=== PATIENT | female | born 1955 | race Hispanic/Latino ===

== ENCOUNTER 2017-04-28 23:14 | Emergency (ER) | payer OTHER ==
[~2017-04-28 23:14] MED LIST: AEC81 PO; BENZ-51 PO; CALC-1048 PO; GLIP5TAB3 PO; LEVO500T2 PO; LISI-613 PO; METF10004 PO; OSEL75 PO; PRAV20TA4 PO
[2017-04-28] MEDS ORDERED: SODIUM CHLORIDE 0.9% 1000ML 1,000 ML IV ONE (23:49)
[2017-04-28] MEDS ORDERED: IBUPROFEN 400 MG TABLET ONE (23:50)
[2017-04-29] MEDS ORDERED: OSELTAMIVIR PHOSPHATE 75 MG CAP ONE (00:41)
== END 2017-04-29 01:25 | disposition home or self-care (01) ==
LOC: EDH 23:14
DX: J09.X2 Influenza due to identified novel influenza A virus with other respiratory manifestations (principal); J45.909 Unspecified asthma, uncomplicated; E11.9 Type 2 diabetes mellitus without complications; E78.5 Hyperlipidemia, unspecified; Z88.5 Allergy status to narcotic agent; Z90.710 Acquired absence of both cervix and uterus; Z90.49 Acquired absence of other specified parts of digestive tract
CPT/HCPCS: 87804 ×2; 96360; 99284; J7030

== ENCOUNTER 2021-12-12 01:58 | Emergency (ER) | payer OTHER ==
[~2021-12-12] VITALS: Ht 152.4 cm; Wt 75.3 kg
[~2021-12-12 01:58] MED LIST changes: -BENZ-51 PO; +BENZ-70 PO; -LISI-613 PO; +LISI20TA24 PO; +METF-446 PO; -METF10004 PO
[2021-12-12 02:25] LABS: BASOPHILS % (AUTO) 0.5 % (0.0-5.0); EOSINOPHILS % (AUTO) 0.6 % (0.0-8.0); HEMATOCRIT 38.6 % (36-48); LYMPHOCYTES % (AUTO) 22.3 % (21.0-51.0); MEAN CORPUSCULAR HEMOGLOBIN 30.2 pg (27.0-33.0); MEAN CORPUSCULAR HGB CONC 33.7 g/dL (32.0-36.0); MEAN CORPUSCULAR VOLUME 89.6 fL (79-99); NEUTROPHILS % (AUTO) 70.2 % (40.0-77.0); PLATELET COUNT (AUTO) 199 K/uL (130-400); RED BLOOD CELL COUNT(AUTO) 4.31 MIL/uL (4.00-5.50); WHITE BLOOD COUNT (AUTO) 13.3 K/uL (4.8-10.8)
[2021-12-12] MEDS ORDERED: METOCLOPRAMIDE 10 MG/2 ML VIAL IVP ONE (02:30)
[2021-12-12] MEDS ORDERED: 0.9%NACL 1000ML 1,000 ML IV ONE (02:30)
[2021-12-12] MEDS ORDERED: ONDANSETRON 4MG INJ IVP ONE (02:30)
[2021-12-12 02:34] LABS: CREATININE 1.1 mg/dL (0.5-1.5); POTASSIUM 4.2 mmol/L (3.5-5.1)
[2021-12-12 02:44] LABS: TOTAL PROTEIN, SERUM 7.5 g/dL (6.0-8.3)
[2021-12-12] MEDS ORDERED: IOHEXOL 350 MG/ML 100ML INFUS..BTL IV ONE (03:53)
[2021-12-12 04:33] LABS: APPEARANCE,URINE CLEAR (CLEAR); BILIRUBIN,URINE NEGATIVE (NEGATIVE); COLOR,URINE YELLOW (YELLOW); GLUCOSE, URINE (UA) 250 mg/dL (NEGATIVE); KETONES,URINE NEGATIVE (NEGATIVE); LEUKOCYTE ESTERASE ,URINE NEGATIVE (NEGATIVE); NITRATE,URINE NEGATIVE (NEGATIVE); OCCULT BLOOD,URINE NEGATIVE (NEGATIVE); PROTEIN,URINE NEGATIVE (NEGATIVE); UROBILINOGEN,URINE 0.2 mg/dL (0.2-1.0)
[2021-12-12] MEDS ORDERED: ONDA4TAB10 PO (05:18)
[2021-12-12] MEDS ORDERED: AZITHROMYCIN 250 MG TABLET PO ONE (05:30)
[2021-12-12 06:00] VITALS: BP 147/79
== END 2021-12-12 06:25 | disposition home or self-care (01) ==
LOC: EDH 01:58
DX: K52.9 Noninfective gastroenteritis and colitis, unspecified (principal); I10 Essential (primary) hypertension; E11.9 Type 2 diabetes mellitus without complications; E78.00 Pure hypercholesterolemia, unspecified; Z88.6 Allergy status to analgesic agent; Z88.8 Allergy status to other drugs, medicaments and biological substances; Z79.899 Other long term (current) drug therapy; Z79.82 Long term (current) use of aspirin; Z79.84 Long term (current) use of oral hypoglycemic drugs; Z90.89 Acquired absence of other organs; Z90.49 Acquired absence of other specified parts of digestive tract; Z98.890 Other specified postprocedural states
CPT/HCPCS: 99285; 74177; 96374; 96361; 96375; 84484; 80053; 83690; 85025; 81003; 36415; 93005; J7030; J2405; J2765; Q9967

== ENCOUNTER 2022-05-03 06:56 | Emergency (ER) | payer OTHER ==
[~2022-05-03] VITALS: Ht 152.4 cm; Wt 71.2 kg
[~2022-05-03 06:56] MED LIST changes: +ONDA4TAB10 PO
[2022-05-03] MEDS ORDERED: ONDANSETRON 4MG INJ IVP ONE (07:30)
[2022-05-03] MEDS ORDERED: 0.9%NACL 1000ML 1,000 ML IV ONE ×2 (07:30)
[2022-05-03] MEDS ORDERED: PANTOPRAZOLE 40 MG/VIAL IVP STA (07:52)
[2022-05-03 07:57] LABS: HEMATOCRIT 44.6 % (36-48); MEAN CORPUSCULAR HEMOGLOBIN 29.8 pg (27.0-33.0); MEAN CORPUSCULAR HGB CONC 33.2 g/dL (32.0-36.0); MEAN CORPUSCULAR VOLUME 89.9 fL (79-99); RED BLOOD CELL COUNT(AUTO) 4.96 MIL/uL (4.00-5.50); RED CELL DISTRIBUTION WIDTH 13.1 % (11.0-15.5)
[2022-05-03 08:13] LABS: ALBUMIN 4.2 g/dL (3.5-5.0); CREATININE 1.1 mg/dL (0.5-1.5); POTASSIUM 4.8 mmol/L (3.5-5.1); TOTAL PROTEIN, SERUM 8.1 g/dL (6.0-8.3)
[2022-05-03 09:14] LABS: APPEARANCE,URINE CLEAR (CLEAR); BILIRUBIN,URINE NEGATIVE (NEGATIVE); COLOR,URINE COLORLESS (YELLOW); GLUCOSE, URINE (UA) 300 mg/dL (NEGATIVE); KETONES,URINE NEGATIVE (NEGATIVE); LEUKOCYTE ESTERASE ,URINE NEGATIVE Leu/uL (NEGATIVE); NITRATE,URINE NEGATIVE (NEGATIVE); OCCULT BLOOD,URINE NEGATIVE (NEGATIVE); PROTEIN,URINE NEGATIVE (NEGATIVE); UROBILINOGEN,URINE 0.2 mg/dL (0.2-1.0)
[2022-05-03 09:15] LABS: RBC,URINE 0-1 /HPF (0-1); WBC,URINE 0-1 /HPF (0-1)
[2022-05-03] MEDS ORDERED: ONDANSETRON 4MG INJ IVP STA (09:56)
[2022-05-03] MEDS ORDERED: LIDOCAINE HCL 2% VISCOUS 15 ML UDCUP PO ONE (10:00)
[2022-05-03] MEDS ORDERED: MAG/ALUM/SIMETH 30 ML UDCUP PO ONE (10:00)
[2022-05-03 10:18] VITALS: BP 144/69
[2022-05-03] MEDS ORDERED: PANT40TA55 PO (10:29)
[2022-05-03] MEDS ORDERED: ONDA4TAB10 PO (10:29)
== END 2022-05-03 10:35 | disposition home or self-care (01) ==
LOC: EDH 06:56
DX: K52.89 Other specified noninfective gastroenteritis and colitis (principal); R11.2 Nausea with vomiting, unspecified; E11.9 Type 2 diabetes mellitus without complications; E78.00 Pure hypercholesterolemia, unspecified; I10 Essential (primary) hypertension; Z79.82 Long term (current) use of aspirin; Z79.84 Long term (current) use of oral hypoglycemic drugs; Z79.899 Other long term (current) drug therapy; Z88.5 Allergy status to narcotic agent; Z88.8 Allergy status to other drugs, medicaments and biological substances; Z98.890 Other specified postprocedural states; Z90.49 Acquired absence of other specified parts of digestive tract; Z90.710 Acquired absence of both cervix and uterus
CPT/HCPCS: 99284; 96374; 96375; 84484; 80053; 83690; 85027; 87040 ×2; 81001; 36415; 96376; 93005; J7030; J2405 ×2; C9113

== ENCOUNTER 2023-08-24 22:59 | Emergency (ER) | payer OTHER ==
[~2023-08-24] VITALS: Ht 152.4 cm; Wt 70.3 kg
[~2023-08-24 22:59] MED LIST changes: +BENZ-226 PO; -BENZ-70 PO; +PANT40TA55 PO
[2023-08-24 23:25] LABS: BASOPHILS # (AUTO) 0.03 K/uL (0.00-0.20); BASOPHILS % (AUTO) 0.2 % (0.0-5.0); EOSINOPHILS # (AUTO) 0.07 K/uL (0.00-0.70); EOSINOPHILS % (AUTO) 0.5 % (0.0-8.0); HEMATOCRIT 42.1 % (36-48); IMMATURE GRANULOCYTE ABSOLUTE 0.06 K/uL (0-1); LYMPHOCYTES # (AUTO) 1.5 K/uL (1.0-4.8); LYMPHOCYTES % (AUTO) 9.9 % (21.0-51.0); MEAN CORPUSCULAR HEMOGLOBIN 30.8 pg (27.0-33.0); MEAN CORPUSCULAR HGB CONC 34.7 g/dL (32.0-36.0); MEAN CORPUSCULAR VOLUME 88.8 fL (79-99); MONOCYTES % (AUTO) 6.3 % (3.0-13.0); NEUTROPHILS # (AUTO) 12.6 K/uL (1.8-7.7); NEUTROPHILS % (AUTO) 82.7 % (40.0-77.0); PLATELET COUNT (AUTO) 200 K/uL (130-400); RED BLOOD CELL COUNT(AUTO) 4.74 MIL/uL (4.00-5.50); RED CELL DISTRIBUTION WIDTH 13.2 % (11.0-15.5); WHITE BLOOD COUNT (AUTO) 15.2 K/uL (4.8-10.8)
[2023-08-24 23:35] LABS: CREATININE 1.3 mg/dL (0.5-1.0); POTASSIUM 3.9 mmol/L (3.5-5.1)
[2023-08-24 23:39] LABS: ALBUMIN 4.3 g/dL (3.5-5.0); BILIRUBIN,TOTAL 0.3 mg/dL (0.2-1.0); TOTAL PROTEIN, SERUM 8.1 g/dL (6.0-8.3)
[2023-08-25] MEDS: PANTOPRAZOLE 40 MG/VIAL IVP ONE (00:30)
[2023-08-25] MEDS: LACTATED RINGERS 1000ML 1,000 ML IV ONE (00:31)
[2023-08-25 02:26] LABS: APPEARANCE,URINE CLEAR (CLEAR); BILIRUBIN,URINE NEGATIVE (NEGATIVE); COLOR,URINE LIGHT-YELLOW (YELLOW); GLUCOSE, URINE (UA) 300 mg/dL (NEGATIVE); KETONES,URINE NEGATIVE (NEGATIVE); LEUKOCYTE ESTERASE ,URINE 75 Leu/uL (NEGATIVE); NITRATE,URINE NEGATIVE (NEGATIVE); OCCULT BLOOD,URINE NEGATIVE (NEGATIVE); PROTEIN,URINE 30 mg/dL (NEGATIVE); UROBILINOGEN,URINE 0.2 mg/dL (0.2-1.0)
[2023-08-25 02:27] LABS: ADD UA MICROSCOPIC YES
[2023-08-25 02:28] LABS: BACTERIA,URINE RARE /HPF (None Seen); SQUAMOUS EPITHELIAL CELL,UR RARE /HPF (0-2)
[2023-08-25] MEDS ORDERED: CEPH500B PO (02:48)
[2023-08-25 02:49] VITALS: BP 139/60; PULSE 97; RESP 20; O2SAT 0
[2023-08-25] MEDS: CEFTRIAXONE 1G VIAL IVPB ONE (02:55)
== END 2023-08-25 03:14 | disposition home or self-care (01) ==
LOC: EDH 22:59
DX: N30.90 Cystitis, unspecified without hematuria (principal); I10 Essential (primary) hypertension; E11.9 Type 2 diabetes mellitus without complications; E78.00 Pure hypercholesterolemia, unspecified; Z79.82 Long term (current) use of aspirin; Z79.84 Long term (current) use of oral hypoglycemic drugs; Z79.899 Other long term (current) drug therapy; Z88.5 Allergy status to narcotic agent; Z90.49 Acquired absence of other specified parts of digestive tract; Z90.710 Acquired absence of both cervix and uterus; Z98.890 Other specified postprocedural states
CPT/HCPCS: 99284; 82550; 84484; 80053; 83690; 85025; 87088; 81001; 36415; 93005; 96374; 96361; 96375; J7120; J0696; C9113

== ENCOUNTER 2024-10-05 05:40 | Inpatient (IN) | payer OTHER ==
[~2024-10-05] VITALS: Ht 152.4 cm; Wt 72.6 kg
[~2024-10-05 05:40] MED LIST changes: +CEPH500B PO; +ONDA-243 PO; -ONDA4TAB10 PO; -PRAV20TA4 PO; +PRAV20TA59 PO
--- NOTE | 2024-10-05 06:05 | ERN ---
ED Note History of Present Illness Stated Complaint: SYNCOPAL EPISODE THIS MORNING Chief Complaint: Syncope Time Seen by MD: 05:46 Dictation: This is a 69-year-old female who was brought into the emergency room with a complaints of syncope this a.m.. Apparently she was fine overnight and at 1:00 a.m. she got up to use the restroom and she felt fine but she was found on the floor this a.m.. She reports weakness nausea vomitings and she has been sick for about 2 weeks with overall not feeling well. She received Zofran 4 mg per EMS prior to arrival in the ER. She was seen recently at urgent care center and she was diagnosed with UTI and given antibiotics. She denied any headaches blurred vision diplopia motor weakness or seizure activity Temperature 98.6 pulse 66 respirations 18 blood pressure 144/72 with a pulse oximetry of 96% on room air Chronic medical problems include diabetes mellitus, hypertension and hypercholesterolemia. Allergies: Coded Allergies: hydromorphone (Verified Allergy, Severe, 10/01/15) meperidine (Verified Allergy, Severe, 10/01/15) Home Meds Active Scripts Cephalexin Monohydrate (Keflex) 500 Mg Cap, 500 MG PO QID for 7 Days, #28 CAP Prov:SILVINO BELLA MD 08/25/23 Pantoprazole Sodium (Protonix) 40 Mg Ectab, 40 MG PO DAILY for 30 Days, #30 TAB.EC Prov:SILVINO BELLA MD 05/03/22 Ondansetron (Ondansetron Odt) 4 Mg Tab.rapdis, 4 MG PO BID for 5 Days, #10 TAB Prov:SILVINO BELLA MD 05/03/22 Ondansetron (Ondansetron Odt) 4 Mg Tab.rapdis, 4 MG PO TID for NAUSEA, #15 TAB Prov:BRENDEN MANE MD 12/12/21 Levofloxacin (Levaquin) 500 Mg Tablet, 500 MG PO DAILY, #5 TAB Prov:DALE DOWNS MD 10/02/15 Oseltamivir Phosphate (Tamiflu) 75 Mg Cap, 75 MG PO BID, #10 CAP Prov:DALE DOWNS MD 10/02/15 Benzonatate (Benzonatate) 100 Mg Capsule, 200 MG PO TID PRN for COUGH, #30 CAP Prov:DALE DOWNS MD 10/02/15 Reported Medications Aspirin (ASPIRIN 81 MG ECTAB) 81 Mg Ectab, 81 MG PO DAILY, TAB.EC 10/01/15 Calcium Carbonate/Vitamin D3 (Oyster Shell Calcium + D Tab) 1 Each Tablet, 1 EACH PO DAILY, TAB 10/01/15 Pravastatin Sodium (Pravastatin Sodium) 20 Mg Tablet, 20 MG PO DAILY, TAB 10/01/15 Lisinopril (Lisinopril) 20 Mg Tablet, 20 MG PO DAILY, TAB 10/01/15 Metformin HCl (Metformin HCl) 1,000 Mg Tablet, 1000 MG PO BID, TAB 10/01/15 Glipizide (Glucotrol) 5 Mg Tablet, 5 MG PO DAILY, TAB 10/01/15 Past Medical History Past Medical History: Diabetes-Type II, High Cholesterol, Hypertension Surgical History: Appendectomy, Hysterectomy, Cholecystectomy, Social History: Negative, Lives with family History: Not Applicable RN Note Reviewed/Agreed w/PFSH: Yes Review of System Dictation Constitutional: Negative for fever,chills, and weight loss, positive for generalized body weakness Eyes: Negative for injury, pain,redness, and discharge ENT: Negative for injury,pain or swelling Cardiovascular: Negative for chest pain, palpitations, and edema Respiratory: Negative for shortness of breath, cough, and wheezing, Abdomen/GI: Negative for abdominal pain, positive for nausea, vomiting, denied diarrhea, and constipation Back: Negative for injury and pain : Negative for injury, bleeding and discharge MS/Extremity: Negative for injury and deformity Skin: Negative for rash, and discoloration Neuro: Negative for headache, weakness, numbness, tingling, and seizure Psych: Negative for suicide ideation, homicidal ideation, and hallucinations Initial Vital Sign VS Vital Signs Date Time Temp Pulse Resp B/P (MAP) Pulse Ox O2 Delivery O2 Flow Rate FiO2 10/05/24 05:42 98.6 66 18 144/72 96 Room Air 0 10/05/24 06:34 21 Physical Exam Dictation General: awake, alert, NAD Head/Face: Normocephalic, atraumatic Eyes: PERRL, EOMI, vision at baseline ENT: oral cavity clear, TMs clear, no signs of infection Neck: Trachea midline, supple, no nuchal rigidity Cardiovascular: RRR, normal S1/S2, No MRGs, no JVD Respiratory: CTAB, no respiratory distress, No rales or wheezes Abdomen: Soft, non-tender, non-distended, normal bowel sounds, no guarding or rebound. Skin: Warm, dry, normal turgor, no rash MS/Extremity: Pulses equal, no cyanosis, neurovascular intact, FROM Neuro: COAx4, GCS 15, strength 5/5, CN 2-12 intact, normal cerebellar exam, normal gait, Psych: Normal behavior, mood, and affect normal Extremities-trace edema without any palpable cords, Homans sign is negative Results (Laboratory/Radiology) Laboratory/Radiology Laboratory Tests Test 10/05/24 06:00 White Blood Count 13.4 K/uL (4.8-10.8) H Red Blood Count 4.58 MIL/uL (4.00-5.50) Hemoglobin 14.1 g/dL (12.0-16.0) Hematocrit 40.7 % (36-48) Mean Corpuscular Volume 88.9 fL (79-99) Mean Corpuscular Hemoglobin 30.8 pg (27.0-33.0) Mean Corpuscular Hemoglobin Concent 34.6 g/dL (32.0-36.0) Red Cell Distribution Width 13.0 % (11.0-15.5) Platelet Count 220 K/uL (130-400) Mean Platelet Volume 12.4 fL (7.5-10.5) H Immature Granulocyte % (Auto) 1.5 % (0-1) H Neutrophils (%) (Auto) 61.6 % (40.0-77.0) Lymphocytes (%) (Auto) 27.5 % (21.0-51.0) Monocytes (%) (Auto) 9.2 % (3.0-13.0) Eosinophils (%) (Auto) 0.1 % (0.0-8.0) Basophils (%) (Auto) 0.1 % (0.0-5.0) Neutrophils # (Auto) 8.2 K/uL (1.8-7.7) H Lymphocytes # (Auto) 3.7 K/uL (1.0-4.8) Monocytes # (Auto) 1.2 K/uL (0.1-1.0) H Eosinophils # (Auto) 0.02 K/uL (0.00-0.70) Basophils # (Auto) 0.02 K/uL (0.00-0.20) Absolute Immature Granulocyte (auto 0.20 K/uL (0-1) Nucleated Red Blood Cells 0.0 % (0.0-0.19) D-Dimer Quantitative (PE/DVT) 315 ng/mL (0-500) Sodium Level 126 mmol/L (136-145) L Potassium Level 4.5 mmol/L (3.5-5.1) Chloride Level 93 mmol/L (101-111) L Carbon Dioxide Level 21 mmol/L (21-32) Blood Urea Nitrogen 32 mg/dL (7-18) H Creatinine 1.3 mg/dL (0.5-1.0) H Glomerular Filtration Rate Calc 44 mL/min (>90) Random Glucose 219 mg/dL (70-105) H Total Calcium 9.3 mg/dL (8.5-10.1) Total Creatine Kinase 49 U/L (21-232) # Troponin I High Sensitivity 7.8 ng/L (4-50) Labs Reviewed?: Yes ED Course ED Course Orders Procedure Category Date Status Time Cbc With Differential LAB 10/05/24 Complete 05:49 Cardiac Panel LAB 10/05/24 Complete 05:49 Urinalysis Profile LAB 10/05/24 Logged 05:49 Chest 1vw RAD 10/05/24 Resulted 05:49 12 Lead Ekg Tracing- EKG 10/05/24 Logged Technical 05:49 0.9%Nacl 1000ml (Ns PHA 10/05/24 In Process 1000ml) 06:00 Basic Metabolic Panel LAB 10/05/24 Complete 05:49 D-Dimer LAB 10/05/24 Complete 05:55 Urinalysis Profile LAB 10/05/24 Logged 06:06 Current Medications Medications (Trade) Dose Ordered Sig/Claudia Route PRN Reason Start Time Stop Time Status Last Admin Dose Admin Sodium Chloride 1,000 ml @ 125 mls/hr ONCE ONCE IV 10/05/24 06:00 10/05/24 13:59 10/05/24 06:25 Vital Signs Date Time Temp Pulse Resp B/P (MAP) Pulse Ox O2 Delivery O2 Flow Rate FiO2 10/05/24 07:05 99.1 60 15 151/71 98 Room Air* 0 21 10/05/24 06:34 69 20 148/68 98 Room Air* 0 21 10/05/24 05:42 98.6 66 18 144/72 96 Room Air 0 We will perform diagnostic labs, advanced imaging and administer medications according to the patient's complaint. Once the results are available, will review and personally interpreted the labs to rule out any acute life-threatenin g emergency the trach require immediate intervention and treatment. I will then re-evaluate the patient after treatment and diagnostic exams have return to determine whether the patient requires any further testing, can safely be discharged home or need further admission to hospital for additional treatment and evaluation. 6:36 a.m. CBC showed a white count of 13.4 hemoglobin 14.1 platelets 220. Chest x-ray preliminary showed no acute infiltrate or pneumothorax. Radiology report is pending BNP 7 is also pending at this time Medical Decision Making MDM MDM: Differential diagnosis: Vasovagal syncope, syncope due to volume depletion, autonomic dysfunction, medication effects, new coronary event, neurologic event, PE Rationale: Tests considered and ordered secondary to shared decision making include: labs, ECG and radiology Previous outside records reviewed: Old ER visits. Risk of complication and/or morbidity or mortality of patient management: None Medications-Per medication reconciliation Need for hospitalization: Patient does meet criteria for hospitalization. Need for emergency major/minor surgery: No There are no social concerns with this patient. Prescription drug management Prescriptions will include symptomatic care Patient's prior external medical records from other ER visits were reviewed by me as indicated. Prior testing and results from previous visits were reviewed. Prior tests were taken into account with medical decision making and resource utilization, independent historian/historians were used to obtain complete medical history. I independently interpreted the test that were performed, results were reviewed by me and considered findings on radiology if ordered. Medical management and examination interpretation discussions were had by me with other qualified healthcare professionals as indicated for the patient's care. She will be admitted under the care of hospitalist group for ongoing management of syncope. Problem List Problem List: (1) Syncope (2) Diabetes type 2 (3) Hypertension (4) Hypercholesterolemia DX & DISP Disposition: Inpatient Decision to Admit Time: 06:38 Departure Impression: Primary Impression: Syncope Additional Impressions: Diabetes type 2, Hypertension, Hypercholesterolemia Condition: Stable Additional Instructions: Patient was informed of all the diagnostic labs and procedures conducted in the emergency room today and demonstrated understanding of the results. I personally reviewed and interpreted all the diagnostic exams performed in the ER today. The patient will be admitted to the hospital for further treatment and evaluation. Disposition-admit to facility Condition-stable/guarded Course-uncertain at this time Pain status-decreased Assessment-exam unchanged Admission Certification- I certify that the patients status is appropriate and is based on my best clinical judgment and the patient's condition as documented in the medical records Referrals: JAC PAZ (PCP) LIDIA BLUE MD Oct 05, 2024 06:05 SILVINO BELLA MD Oct 05, 2024 08:55
[2024-10-05 06:15] LABS: BASOPHILS # (AUTO) 0.02 K/uL (0.00-0.20); BASOPHILS % (AUTO) 0.1 % (0.0-5.0); EOSINOPHILS # (AUTO) 0.02 K/uL (0.00-0.70); EOSINOPHILS % (AUTO) 0.1 % (0.0-8.0); HEMATOCRIT 40.7 % (36-48); LYMPHOCYTES # (AUTO) 3.7 K/uL (1.0-4.8); LYMPHOCYTES % (AUTO) 27.5 % (21.0-51.0); MEAN CORPUSCULAR HEMOGLOBIN 30.8 pg (27.0-33.0); MEAN CORPUSCULAR HGB CONC 34.6 g/dL (32.0-36.0); MEAN CORPUSCULAR VOLUME 88.9 fL (79-99); MONOCYTES # (AUTO) 1.2 K/uL (0.1-1.0); MONOCYTES % (AUTO) 9.2 % (3.0-13.0); NEUTROPHILS # (AUTO) 8.2 K/uL (1.8-7.7); NEUTROPHILS % (AUTO) 61.6 % (40.0-77.0); PLATELET COUNT (AUTO) 220 K/uL (130-400); RED BLOOD CELL COUNT(AUTO) 4.58 MIL/uL (4.00-5.50); WHITE BLOOD COUNT (AUTO) 13.4 K/uL (4.8-10.8)
[2024-10-05] MEDS: 0.9%NACL 1000ML 1,000 ML IV ONE (06:25)
[2024-10-05 06:37] LABS: CREATININE 1.3 mg/dL (0.5-1.0); POTASSIUM 4.5 mmol/L (3.5-5.1)
--- NOTE | 2024-10-05 07:36 | HMCIMG ---
CHEST 1VW HISTORY: Syncope COMPARISON: 10/01/2015 FINDINGS: A frontal projection of the chest was obtained. No acute pulmonary infiltrates is seen. The heart is borderline enlarged. Prominent interstitial markings are seen. Degenerative changes are seen. Aortic calcifications are seen. IMPRESSION: 1. No acute pulmonary infiltrate is seen.
[2024-10-05] MEDS ORDERED: ondanSETRON 4MG INJ IVP PRN (09:30)
[2024-10-05] MEDS ORDERED: GLUCAGON 1MG KIT 1 MG ML IM PRN (09:30)
[2024-10-05] MEDS ORDERED: acetaMINOPHEN 325 MG TAB PO PRN (09:30)
[2024-10-05] MEDS ORDERED: DEXTROSE 50%-WATER 50 ML DISP.SYRIN IV PRN (09:30)
[2024-10-05] MEDS ORDERED: IpraTROPium/alBUTERol SULFATE 3 ML SOLUTION IH PRN (09:30)
[2024-10-05 09:34] LABS: INR 0.94 (0.85-1.15)
[2024-10-05 09:35] LABS: PARTIAL THROMBOPLASTIN TIME 23.8 SEC (26.3-35.5)
--- NOTE | 2024-10-05 09:37 | NUR ---
ORTHOSTATIC VSs SUPINE 145/70 63BPM SITTING 142/68 71 BPM STANDING 126/59 80BPM
[2024-10-05 09:38] LABS: HEMOGLOBIN A1C 8.3 % (4.0-6.0)
[2024-10-05 09:45] VITALS: O2SAT 98
[2024-10-05 09:45] LABS: ALANINE AMINOTRANSFERASE 35 U/L (12-78); ALBUMIN 4.6 g/dL (3.5-5.0); ASPARTATE AMINOTRANSFERASE 42 U/L (10-37); BILIRUBIN,DIRECT 0.1 mg/dL (0.0-0.3); BILIRUBIN,TOTAL 0.2 mg/dL (0.2-1.0); LACTATE DEHYDROGENASE 196 U/L (81-234); THYROID STIMULATING HORMONE 9.09 uIU/mL (0.36-3.74); TOTAL PROTEIN, SERUM 8.4 g/dL (6.0-8.3)
[2024-10-05 09:57] LABS: CHOLESTEROL 166 mg/dL (<200); HDL CHOLESTEROL 58 mg/dL (35-85); LDL DIRECT 68 mg/dL (0-99); TRIGLYCERIDES 475 mg/dL (30-200)
[2024-10-05] MEDS ORDERED: hydrALAZine 20MG/ML VIAL IV PRN (10:00)
--- NOTE | 2024-10-05 10:03 | HP ---
[facility]ISTORY [facility] PHYS[facility] Date of Service: Oct 05, 2024 Time of Service: 09:42 HISTORY OF PRESENT ILLNESS: Date of service: 10/05/2024 69 female with underlying history of hypertension, type 2 diabetes mellitus, history of cardiac murmur diagnosed in 1994, obesity, asthma who presented to the ER after a syncopal episode. Patient close to 4:00 a.m. woke up to use the restroom and had some episode of nausea and felt diaphoretic and she found herself on the floor. She denies any myalgias, tongue biting, urinary or fecal incontinence. She has been sick for about a week and has been dealing with a urinary tract infection. Initially she took a course of Keflex and had followed up with her primary care physician who prescribed her another course of Bactrim after she complained of having dysuria and urinary frequency. Has been having a lot of itching in the genitourinary region and she has been prescribed fluconazole for concerns for yeast infection. Prior to getting ill, patient is ambulatory at home. She has history of hypertension and takes losartan if her blood pressure is greater than 140/90. She has a history of type 2 diabetes mellitus and is on outpatient insulin treatment. She has been having episodes of nausea and vomiting today with some mild epigastric discomfort. She denies any headache or focal weakness of her upper or lower extremity since the syncopal episode today. She also saw her PCP for shoulder pain and was prescribed some steroids. Steroids caused her to have itching and she stopped taking the medication and did not take any steroids yesterday. On presentation to the hospital, patient was noted to be afebrile with T-max of 98.6 F, heart rate of 66. Blood pressure including orthostatic vitals showed BP initially of 144/70 lying down, 142/68 sitting, and 126/59 when standing up and patient reported feeling dizzy when standing up. [place] [address], hemoglobin of 14.1, platelet count of 220054. BMP remarkable for corrected sodium of 126, potassium 4.5, BUN of 32, creatinine 1.3, troponin of 7.8. REVIEW OF SYSTEMS CONSTITUTIONAL: Fatigue, debility since the fall NEUROLOGICAL: Denies headache, amaurosis fugax, motor weakness, sensory deficit, vertigo/spinning sensation, gait abnormalities, or tremors. ENT: No hearing loss, otalgia, otorrhea, rhinitis, rhinorrhea, hoarseness, or sore throat. CARDIOVASCULAR: Reports having history of cardiac murmur, reports having syncopal episode today PULMONARY: Denies any shortness of breath, cough, phlegm/sputum, hemoptysis, pleuritic chest pain. SLEEP: Denies morning headaches, daytime somnolence or napping. Denies difficulty falling asleep, staying asleep, waking from sleep. Denies knowledge of snoring. GASTROINTESTINAL: Nausea, vomiting, epigastric abdominal pain, abdominal pain is not radiating to the back GENITOURINARY: itching ENDOCRINOLOGIC: Denies polyuria, polydipsia, polyphagia or heat/cold intolerances. HEMATOLOGIC: Denies thrombophilia/previous clots, or coagulopathy/bleeding disorders. ONCOLOGIC: Denies personal history of malignancy. DERMATOLOGIC: Denies rashes or pruritus. PSYCHIATRIC: Denies any suicidal or homicidal ideation. Denies hallucinations. PAST MEDICAL HISTORY: Hypertension, hyperlipidemia, history of UTIs, obesity, asthma PAST SURGICAL HISTORY: Reports having history of appendectomy, Hx of cholecystectomy PAST SOCIAL HISTORY: Denies active smoking or alcohol consumption FAMILY HISTORY: Family history Allergies: Hydromorphone, Demerol, Januvia Home medications: Humalog 75-25, 30 units in the morning and 20 units in the evening, recently prescribed Bactrim double strength b.i.d., losartan 50 mg twice daily, rosuvastatin 10 mg daily, [id number] mcg daily, Protonix 40 mg daily remains, trelegy once a day Coded Allergies: hydromorphone (Verified Allergy, Severe, 10/01/15) meperidine (Verified Allergy, Severe, 10/01/15) sitagliptin (Verified Allergy, Unknown, 10/05/24) PHYSICAL EXAM GENERAL APPEARANCE: The patient is awake, alert, and oriented, in no acute cardiopulmonary distress. NEUROLOGICAL: Cranial nerves II-XII grossly intact. Motor is 5/5 in bilateral upper and lower extremities proximal to distal. No sensory deficits. HEENT: Face is symmetric. Pupils are equal and reactive. Extraocular movements are intact. NECK: Supple. No JVD. No thyromegaly. No submental, submandibular, pre- /postauricular, occipital or supraclavicular lymphadenopathy. CHEST: Normal chest expansion. No Telemetry. LUNGS: Absence of any rales, rhonchi or any wheezing. CARDIOVASCULAR: Regular. S1 and S2 normal. No appreciable rubs, murmurs or gallops. ABDOMEN: Soft, mild tenderness to palpation of the epigastric region : Deferred. No Scott. EXTREMITIES: Non-edematous and not cyanotic. No clubbing. Good capillary refill. SKIN: No skin breakdown. Vital Sign (Last 24 Hours) 10/05/24 10/05/24 07:05 09:33 Temp 99.1 Pulse 63 Resp 15 B/P (MAP) 144/70 142/68 126/59 Pulse Ox 98 O2 Delivery Room Air* O2 Flow Rate 0 FiO2 21 LABS: Laboratory: Test 10/05/24 06:00 Range/Units White Blood Count 13.4 H 4.8-10.8 K/uL Red Blood Count 4.58 4.00-5.50 MIL/uL Hemoglobin 14.1 12.0-16.0 g/dL Hematocrit 40.7 36-48 % Mean Corpuscular Volume 88.9 79-99 fL Mean Corpuscular Hemoglobin 30.8 27.0-33.0 pg Mean Corpuscular Hemoglobin Concent 34.6 32.0-36.0 g/dL Red Cell Distribution Width 13.0 11.0-15.5 % Platelet Count 220 130-400 K/uL Mean Platelet Volume 12.4 H 7.5-10.5 fL Immature Granulocyte % (Auto) 1.5 H 0-1 % Neutrophils (%) (Auto) 61.6 40.0-77.0 % Lymphocytes (%) (Auto) 27.5 21.0-51.0 % Monocytes (%) (Auto) 9.2 3.0-13.0 % Eosinophils (%) (Auto) 0.1 0.0-8.0 % Basophils (%) (Auto) 0.1 0.0-5.0 % Neutrophils # (Auto) 8.2 H 1.8-7.7 K/uL Lymphocytes # (Auto) 3.7 1.0-4.8 K/uL Monocytes # (Auto) 1.2 H 0.1-1.0 K/uL Eosinophils # (Auto) 0.02 0.00-0.70 K/uL Basophils # (Auto) 0.02 0.00-0.20 K/uL Absolute Immature Granulocyte (auto 0.20 0-1 K/uL Nucleated Red Blood Cells 0.0 0.0-0.19 % Prothrombin Time 10.0 9.6-11.6 SEC Prothromb Time International Ratio 0.94 0.85-1.15 Activated Partial Thromboplast Time 23.8 L 26.3-35.5 SEC D-Dimer Quantitative (PE/DVT) 315 0-500 ng/mL Sodium Level 126 L 136-145 mmol/L Potassium Level 4.5 3.5-5.1 mmol/L Chloride Level 93 L 101-111 mmol/L Carbon Dioxide Level 21 21-32 mmol/L Blood Urea Nitrogen 32 H 7-18 mg/dL Creatinine 1.3 H 0.5-1.0 mg/dL Glomerular Filtration Rate Calc 44 >90 mL/min Random Glucose 219 H 70-105 mg/dL Hemoglobin A1c 8.3 H 4.0-6.0 % Estimated Average Glucose (eAG) 192 H 70-126 mg/dL Total Calcium 9.3 8.5-10.1 mg/dL Total Creatine Kinase 49 # 21-232 U/L Troponin I High Sensitivity 7.8 4-50 ng/L Lipase 233 H 16-77 U/L Current Medications Medications (Trade) Dose Ordered Sig/Claudia Route PRN Reason Start Time Stop Time Status Last Admin Dose Admin Acetaminophen (TYLenol 325MG TAB) 650 mg Q6H PRN PO MILD PAIN (1-3) 10/05/24 09:30 11/04/24 09:29 Albuterol (DUOneb) 1 udvial Q6H PRN IH SHORTNESS OF BREATH 10/05/24 09:30 11/04/24 09:29 Dextrose (D50w) 50 ml AD PRN IV HYPOGLYCEMIA PROTOCOL 10/05/24 09:30 11/04/24 09:29 Enoxaparin Sodium (Lovenox) 30 mg DAILY SQ 10/06/24 09:00 11/05/24 08:59 Famotidine (Pepcid 20mg Vial) 20 mg Q48H IV 10/05/24 21:00 11/04/24 20:59 Glucagon (Glucagon 1mg Kit) 1 mg AD PRN IM HYPOGLYCEMIA PROTOCOL 10/05/24 09:30 11/04/24 09:29 Insulin Human Regular (humuLIN R 100 UNIT/ML 3ML) INSULIN SLIDING SCAL... ACHS SQ 10/05/24 11:30 11/04/24 11:29 Ondansetron HCl (zoFRAN 4MG INJ) 4 mg Q6H PRN IVP NAUSEA/VOMITING 10/05/24 09:30 11/04/24 09:29 Sodium Chloride 1,000 ml @ 75 mls/hr [id number] IV 10/05/24 09:30 11/04/24 09:29 Thiamine HCl (Vitamin B-1) 100 mg DAILY IVP 10/06/24 09:00 11/05/24 08:59 DIAGNOSTICS / RADIOLOGY: SERVICE [id number] REASON: SYNCOPE ORDERING PHYSICIAN: LIDIA BLUE MD PROCEDURE: CXR1VW - CHEST 1VW CHEST 1VW HISTORY: Syncope COMPARISON: 10/01/2015 FINDINGS: A frontal projection of the chest was obtained. No acute pulmonary infiltrates is seen. The heart is borderline enlarged. Prominent interstitial markings are seen. Degenerative changes are seen. Aortic calcifications are seen. IMPRESSION: 1. No acute pulmonary infiltrate is seen. DICTATED BY: NIRMALA RODGERS MD DATE: 10/05/24732 ELECTRONICALLY SIGNED BY: NIRMALA RODGERS MD DATE: 10/05/24735 ASSESSMENT: Syncope with fall, POA Orthostasis, POA Recent history of recurrent urinary tract infection currently on outpatient Bactrim, POA Acute kidney injury, POA Moderate Hyponatremia, POA, hypovolemic History of cardiac murmur, POA Uncontrolled hyperglycemia, POA Type 2 diabetes mellitus, POA History of hypothyroidism, POA Underlying history of asthma, POA Debility, POA Obesity, POA Leukocytosis, POA PLAN: Patient will be admitted to cardiac telemetry floor Patient has been feeling ill for about a week with recent history of being diagnosed with urinary tract infection. Labs on presentation remarkable for leukocytosis, hyponatremia, and acute kidney injury. Patient has some orthostatic changes in on blood pressure as well. We will start patient on IV hydration with NS at 75 mL/hour, will hold anti HTN, once orthostasis resolves, anti HTN can be restarted We will follow up blood cultures, we will obtain urinalysis with urine culture, we will see if patient has active infection, we will request consultation with Infectious Disease, we will keep Bactrim on hold for now We will follow up with CT head without contrast and patient has been having some epigastric pain, we will check a serum lipase and amylase, we will follow up with a CT abdomen pelvis without contrast Keep patient on thiamine supplementation We will obtain a 2D echocardiogram given syncopal episode with underlying history of cardiac murmur, we will assess for any significant valvulopathy We will keep patient on telemetry monitoring We will keep patient on sliding scale insulin a.c. and HS, we will start patient on basal Lantus while inpatient We will rule out any signs of pancreatitis, we will follow up on labs today We will request consultation with Physical therapy Anticipate hospitalization for at least 48-72 hours, we will see how patient progresses clinically, further orders per clinical course Date of service: 10/05/2024 Plan of care was discussed with patient at bedside, Facundo Carrillo MD Advanced Care Planning: Which of the following were discussed: Hospice care: Yes __ No _X_ Therapeutic options: Yes _X_ No __ Advance directives: Yes _X_ No __ Other discussions: Discussed with who?: Patient Voluntary nature of this service was explained to the patient? Yes _x_ No __ Amount of time spent: 20 minutes FACUNDO CARRILLO MD Oct 05, 2024 10:03
--- NOTE | 2024-10-05 10:24 | HMCIMG ---
CT HEAD/BRAIN W/O CONTRAST HISTORY: Syncope COMPARISON: None TECHNIQUE: Multiple sequential axial images of the head were obtained from the base of the skull through vertex. Patient was not given contrast through intravenous route. FINDINGS: The ventricles and extraventricular CSF spaces are dilated consistent with cerebral atrophy. Nonspecific white matter changes seen. There is no midline shift, mass effect or herniation. No acute intracranial bleed is seen. Visualized portion of the paranasal sinuses are grossly within normal limits. IMPRESSION: 1. No acute intracranial bleed is seen. 2. Atrophy with white matter changes. CT was performed with one or more following dose reduction techniques: automated exposure control, adjustment of the mA and kv according to patient's size, or use of a iterative reconstruction technique.
--- NOTE | 2024-10-05 10:28 | HMCIMG ---
CT ABDOMEN/PELVIS W/O CONTRAST HISTORY: Abdominal pain COMPARISON: 12/12/2021 TECHNIQUE: Multiple sequential axial images of the abdomen and pelvis were obtained from the dome of the diaphragm through symphysis pubis. Patient was not given contrast through intravenous route. Oral contrast was not given. FINDINGS: No pleural effusion is seen bilaterally. There is no evidence of parenchymal disease or pulmonary nodule of the visualized lower lungs. Degenerative changes of the thoracolumbar spine are present. The heart is not enlarged. Liver is enlarged measuring 18.9 cm. Post cholecystectomy changes are seen. The liver, spleen, adrenal glands and pancreas are unremarkable. There is no evidence of hydronephrosis bilaterally. No evidence of renal stone is seen. If there is clinical suspicion for pyelonephritis, urinalysis correlation is helpful. Fecal material is seen in the colon. There are normal size retroperitoneal and mesenteric lymph nodes. No ascites is seen. Atherosclerotic changes are present. Appendix is not well-seen limiting evaluation. There is mild diverticulosis. Pelvic sidewalls are symmetric bilaterally. Bladder is well distended without wall thickening. IMPRESSION: 1. Fecal material is seen in the colon. CT was performed with one or more following dose reduction techniques: automated exposure control, adjustment of the mA and kv according to patient's size, or use of a iterative reconstruction technique.
[2024-10-05] MEDS: INSULIN humuLIN R 100 UNIT/ML 3ML SQ SCH (11:30)
[2024-10-05 11:39] LABS: APPEARANCE,URINE CLEAR (CLEAR); BILIRUBIN,URINE NEGATIVE (NEGATIVE); COLOR,URINE COLORLESS (YELLOW); GLUCOSE, URINE (UA) TRACE mg/dL (NEGATIVE); KETONES,URINE NEGATIVE (NEGATIVE); LEUKOCYTE ESTERASE ,URINE NEGATIVE Leu/uL (NEGATIVE); NITRATE,URINE NEGATIVE (NEGATIVE); OCCULT BLOOD,URINE NEGATIVE (NEGATIVE); PH,URINE 5.5 (5.0-8.0); PROTEIN,URINE NEGATIVE (NEGATIVE); UROBILINOGEN,URINE 0.2 mg/dL (0.2-1.0)
[2024-10-05 11:40] LABS: ADD UA MICROSCOPIC YES
[2024-10-05 11:46] LABS: RBC,URINE 0-1 /HPF (0-1); SQUAMOUS EPITHELIAL CELL,UR RARE /HPF (0-2); WBC,URINE 0-1 /HPF (0-1)
[2024-10-05] MEDS: 0.9%NACL 1000ML 1,000 ML IV SCH (12:56)
[2024-10-05] MEDS: PANTOPrazole 40 MG/VIAL IVP SCH (12:56)
--- NOTE | 2024-10-05 13:04 | NUR ---
CARDIOLOGY CONSULT DR SANDS AT BEDSIDE
--- NOTE | 2024-10-05 13:14 | HMCSR ---
APPROVED REPORT EXAM: Two-dimensional and M-mode echocardiogram with Doppler and color Doppler. Study Details: HTN ,HLD ,Diabtes M INDICATION ICD: hx of cardiac murmur Syncope 2D Dimensions RVDd3.1 cmLVEF(%)72.9 (>50%)LVED Vol(simp.)76.2 mL IVSd1.2 (0.7-1.1cm)FS(%)41 %LVES Vol(simp.)31.5 mL LVDd3.4 (3.8-5.6cm)LA (2D)3.2 (1.6-4.0cm)LVEF(%, simp.)59 % PWd1.1 (0.7-1.1cm)Ao Root(2D)2.7 (2.0-3.7cm)LA ESV INDEX (4CH)15.00 mL/m2 IVSs1.3 cmLVOT diam1.8 (1.8-2.4cm)LA ESV INDEX (2CH)11.97 mL/m2 LVDs2.0 (2.5-4.0cm)IVC diam1.1 cmLA ESV INDEX (BP)12.69 mL/m2 PWs1.5 cm Deformation Strain Apical 4-12.5 % Apical 2-12.6 % Apical 3-15.0 % Global Cyutqf79.3 % M-Mode Dimensions EPSS0.2 cm LA (MM)3.7 (1.6-4.0cm) Ao Root(MM)2.6 (2.0-3.7cm) Aortic Valve AoV Vmax2.1 m/Anisha Peak GR17.7 mmHgLVOT Vmax1.0 m/s AoV VTI0.4 mAo Mean GR9.2 mmHgLVOT VTI0.27 m HEIDY (VMAX)1.25 cm2Al P1/2T813 msAVA (VTI) 1.8 cm2 Mitral Valve MV E Vmax67.8 cm/sDECEL Cpcp041 ms MV A Vmax96.2 cm/s E/A ratio0.7 TDI E/E' Xummtr88.0E/E' Lateral8.5 Medial E' Peak V6.18 cm/sLateral E' Peak V8.00 cm/s Pulmonary Valve PV Vmax0.9 m/sPV VTI0.19 mPV Mean GR1.9 mmHg PV Peak GR3.5 mmHg Tricuspid Valve TR Vmax2.1 m/sRVSP16.8 mmHg TR Peak GR16.8 mmHg Left Ventricle Left ventricular cavity size is normal. There is normal LV segmental wall motion. Moderate concentric left ventricular hypertrophy. LVEF is 60-65%. Left ventricular filling pattern is normal for age. Right Ventricle The right ventricle is normal size. The right ventricular systolic function is normal. Atria The left atrial size is normal. The right atrium size is normal. Aortic Valve Trileaflet and sclerotic Trace aortic regurgitation. There is no aortic valvular stenosis. Mitral Valve Mild posterior mitral annular calcification present. There is trace mitral valve regurgitation noted. There is no mitral valve stenosis. Tricuspid Valve The tricuspid valve leaflets appear normal. trace tricuspid regurgitation. Pulmonic Valve Pulmonic valve is not well visualized. There is no pulmonic valvular regurgitation. Great Vessels The aortic root is normal in size. The ascending aorta is normal in size. The IVC is normal in size a nd collapses >50% with inspiration. Pericardium No pericardial effusion. Other Information Quality : Good Conclusion Left ventricular cavity size is normal. LVEF is 60-65% with normal LV segmental wall motion. Moderate concentric left ventricular hypertrophy. Left ventricular filling pattern is normal for age. The right ventricular systolic function is normal. Both atria are normal in size. No hemodynamically significant valvular abnormalities. No pericardial effusion.
--- NOTE | 2024-10-05 13:27 | CONS ---
[facility] CARDIOLOGY CONSULTATION NOTE Date Patient Seen: Oct 05, 2024 Time of Visit: 13:17 Reason for Consultation: [Syncope ] History of Present Illness: [69-year-old female with a past medical history of hypertension, hyperlipidemia, type 2 diabetes, and obesity, who presented to [facility] ER following a syncopal event. Per patient she awoke at 4:00 a.m. to use the restroom and shortly thereafter experienced nausea and dizziness followed by brief loss of consciousness. This was unwitnessed and patient denies head trauma and states she regained consciousness within seconds to a minute. She denies any confusion, seizure-like activity, or loss of urinary/bowel function. Of note, she states she was prescribed p.o. antibiotics for a UTI and shortly thereafter began endorsing pruritus and was also given a short course of fluconazole and steroids. She denies a history of CAD/ Myocardial infarction, CVA or a family history of premature CAD. She is a never smoker and states that following a syncopal event upon checking her fingerstick glucose was 186. On arrival to [facility] ER her presenting ECG revealed sinus rhythm with no evidence of acute ischemia and there have been no telemetry events. Her initial labs revealed hyponatremia with a sodium of 126 and a mild ASTER with a creatinine of 1.3. Orthostatics were weakly positive (144 mm of mercury systolic supine dropping to 12 6 mm of mercury upon standing), but she did endorse mild dizziness. 2D echocardiogram was performed in the ER revealing a preserved systolic function with an LVEF of 60 65% with no wall motion or valvular abnormalities and her initial troponin was negative and on further questioning she denies chest pain, palpitations, dyspnea, or other anginal equivalents. 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 Patient has no further complaints in his currently afebrile, hemodynamically stable in no acute distress. Cardiology was consulted for syncope] Past Medical History: [Refer to HPI] Past Surgical History: [ Refer to chart] Family History: [Noncontributory] Habits: [Never] smoker. [Denies] alcohol consumption. [Denies] illicit drug use Review of Systems: Review of 12 point systems was negative except per HPI Physical Examination: GENERAL: [No acute distress.] HEAD: [Normal with no signs of head trauma.] EYES: [PERRLA, EOMI, conjunctiva and sclera normal.] ENT: [Hearing grossly intact, normal oropharynx.] NECK: [Supple without JVD. There is no tenderness, lymphadenopathy, or masses. No thyromegaly. Normal carotid upstrokes without bruits.] LUNGS: [Clear breath sounds bilaterally.. No wheezes, or rhonchi.] HEART: [Normal rate and rhythm. Normal S1 and S2 without mumurs, gallop or rub.] VASC: [Peripheral pulses +2 bilaterally.] ABD: [Bowel sounds normal, soft, nontender, no masses, no organomegaly. No audible bruits.] : [Not examined] LYMPH: [No lymphadenopathy noted.] EXT: [No clubbing, cyanosis or edema.] SKIN: [No rashes or lesions noted.] NEURO: [Awake, alert, and oriented x3. No focal sensory or strength deficits noted.] Vital Signs (last 8hr) Date Time Temp Pulse Resp B/P (MAP) Pulse Ox O2 Delivery O2 Flow Rate FiO2 10/05/24 09:45 N/A Room Air 21 10/05/24 09:33 63 144/70 Room Air* 0 21 142/68 126/59 10/05/24 07:05 99.1 60 15 151/71 98 Room Air* 0 21 10/05/24 06:34 69 20 148/68 98 Room Air* 0 10/05/24 05:42 98.6 66 18 144/72 96 Room Air 0 Laboratory: [ ] Hematology Labs: Test 10/05/24 06:00 Range/Units White Blood Count 13.4 H 4.8-10.8 K/uL Red Blood Count 4.58 4.00-5.50 MIL/uL Hemoglobin 14.1 12.0-16.0 g/dL Hematocrit 40.7 36-48 % Mean Corpuscular Volume 88.9 79-99 fL Mean Corpuscular Hemoglobin 30.8 27.0-33.0 pg Mean Corpuscular Hemoglobin Concent 34.6 32.0-36.0 g/dL Red Cell Distribution Width 13.0 11.0-15.5 % Platelet Count 220 130-400 K/uL Mean Platelet Volume 12.4 H 7.5-10.5 fL Immature Granulocyte % (Auto) 1.5 H 0-1 % Neutrophils (%) (Auto) 61.6 40.0-77.0 % Lymphocytes (%) (Auto) 27.5 21.0-51.0 % Monocytes (%) (Auto) 9.2 3.0-13.0 % Eosinophils (%) (Auto) 0.1 0.0-8.0 % Basophils (%) (Auto) 0.1 0.0-5.0 % Neutrophils # (Auto) 8.2 H 1.8-7.7 K/uL Lymphocytes # (Auto) 3.7 1.0-4.8 K/uL Monocytes # (Auto) 1.2 H 0.1-1.0 K/uL Eosinophils # (Auto) 0.02 0.00-0.70 K/uL Basophils # (Auto) 0.02 0.00-0.20 K/uL Absolute Immature Granulocyte (auto 0.20 0-1 K/uL Nucleated Red Blood Cells 0.0 0.0-0.19 % Erythrocyte Sedimentation Rate 5 0-30 MM/HR Chemistry Labs: Test 10/05/24 12:59 10/05/24 10:47 10/05/24 06:00 Range/Units Whole Blood Glucose 166 H 70-110 MG/DL Whole Blood Ketones Quantitative 0.3 0.0-0.6 mmol/L Lactic Acid Level 1.7 0.8-2.5 mmol/L Sodium Level 126 L 136-145 mmol/L Potassium Level 4.5 3.5-5.1 mmol/L Chloride Level 93 L 101-111 mmol/L Carbon Dioxide Level 21 21-32 mmol/L Blood Urea Nitrogen 32 H 7-18 mg/dL Creatinine 1.3 H 0.5-1.0 mg/dL Glomerular Filtration Rate Calc 44 >90 mL/min Random Glucose 219 H 70-105 mg/dL Hemoglobin A1c 8.3 H 4.0-6.0 % Estimated Average Glucose (eAG) 192 H 70-126 mg/dL Total Calcium 9.3 8.5-10.1 mg/dL Magnesium Level 2.20 1.80-2.40 mg/dL Total Bilirubin 0.2 0.2-1.0 mg/dL Direct Bilirubin 0.1 0.0-0.3 mg/dL Aspartate Amino Transf (AST/SGOT) 42 H 10-37 U/L Alanine Aminotransferase (ALT/SGPT) 35 12-78 U/L Alkaline Phosphatase 142 H 50-136 U/L Lactate Dehydrogenase 196 81-234 U/L Total Creatine Kinase 49 # 21-232 U/L Troponin I High Sensitivity 7.8 4-50 ng/L C-Reactive Protein, Quantitative < 0.50 L 0.5-3.0 mg/L Total Protein 8.4 H 6.0-8.3 g/dL Albumin 4.6 3.5-5.0 g/dL Triglycerides Level 475 H 30-200 mg/dL Cholesterol Level 166 <200 mg/dL LDL Cholesterol 68 0-99 mg/dL HDL Cholesterol 58 35-85 mg/dL Amylase Level 139 #H 25-115 U/L Lipase 233 H 16-77 U/L Procalcitonin 0.05 0.05-0.5 ng/mL Thyroid Stimulating Hormone (TSH) 9.09 H 0.36-3.74 uIU/mL Coagulation Labs: Test 10/05/24 06:00 Range/Units Prothrombin Time 10.0 9.6-11.6 SEC Prothromb Time International Ratio 0.94 0.85-1.15 Activated Partial Thromboplast Time 23.8 L 26.3-35.5 SEC D-Dimer Quantitative (PE/DVT) 315 0-500 ng/mL Diagnostics / Radiology: [Copy/Paste Echos/Imaging Report here] Assessment: [Syncope Hyponatremia Hypertension Hyperlipidemia Type 2 diabetes Obesity ] Plan: [ #Syncope: Orthostatic versus vasovagal Patient has a similar event one year prior following urination Patient denies any postictal confusion or seizure-like activity Presenting ECG was nonischemic and initial troponin was negative. ACS has been ruled out 2D echocardiogram revealed a preserved systolic function (LVH of 60-65%), moderate LVH with no wall motion or valvular abnormalities There have been no tele events thus far and orthostatics are weakly positive (144 mmHg systolic supine and dropping to 126 mm of mercury upon standing) Continue with IV fluids and repeat orthostatics q.12 hours. Please keep patient on telemetry and monitor/replace electrolytes as needed Per patient following syncopal event her fingerstick glucose was 186. There was no evidence of sepsis at this time Her hyponatremia is likely secondary to dehydration/orthostasis. If orthostatic vital signs resolve and patient's symptoms improve we will plan for outpatient event monitoring Thank you for this consult. Cardiology will continue to follow along for orthostatic and telemetry review ] LANDY Angela MD, MD Oct 05, 2024 13:27
--- NOTE | 2024-10-05 13:50 | EKG ---
[facility] Test Date: 2024-10-05 Test Time: 05:51:28 Pat Name: HILLARY GARCIA Department: EDHIP Room: ED 11 Gender: F Senior Advocate: [id number] : 1955 Requested By: LIDIA BLUE Order Number: [id number] Reading MD: Greg Chilel Measurements Intervals [place] Rate: 64 P: -1 VA: 167 QRS: -20 QRSD: 82 T: 72 QT: 403 QTc: 417 Interpretive Statements Sinus rhythm Low voltage, precordial leads Electronically Signed On 10-05-2024 14:44:58 CDT by Greg Chilel Please click the below link to view image of tracing.
[2024-10-05 14:23] LABS: POTASSIUM 4.6 mmol/L (3.5-5.1)
--- NOTE | 2024-10-05 16:10 | NUR ---
REPORT GIVEN TO LAURO
[2024-10-05 16:45] VITALS: BP 128/73; PULSE 66; RESP 19; TEMP 98.8
[2024-10-05] MEDS ORDERED: MONT-39 PO (17:32)
[2024-10-05] MEDS ORDERED: ROSU10TA72 PO (17:33)
[2024-10-05] MEDS ORDERED: LOSA50TA64 PO (17:35)
[2024-10-05] MEDS ORDERED: HUMLIS7525 SQ ×2 (17:44→17:45)
[2024-10-05 20:00] VITALS: BP 117/57; PULSE 64; RESP 20; TEMP 98.5
[2024-10-05] MEDS ORDERED: FAMOTIDINE 20MG VIAL IV SCH (21:00)
[2024-10-05] MEDS: doCUSate SODIUM 100 MG CAP PO SCH (21:06)
[2024-10-05] MEDS: INSULIN GLARgine 100 UNITS/ML 10 ML VIAL SQ SCH (21:16)
[2024-10-05] MEDS: atorVAStatin 20 MG TABLET PO SCH (22:00)
[2024-10-05 22:21] VITALS: O2SAT 99
[2024-10-05 22:23] VITALS: PULSE 64; RESP 18; O2SAT 98
[2024-10-06] VITALS (13 sets, daily range): BP systolic 138–166; BP diastolic 64–77; PULSE 58–88; RESP 18–20; TEMP 97.6–98.6; O2SAT 95–100
[2024-10-06 04:07] LABS: BASOPHILS # (AUTO) 0.02 K/uL (0.00-0.20); BASOPHILS % (AUTO) 0.2 % (0.0-5.0); EOSINOPHILS # (AUTO) 0.02 K/uL (0.00-0.70); EOSINOPHILS % (AUTO) 0.2 % (0.0-8.0); HEMATOCRIT 36.4 % (36-48); IMMATURE GRANULOCYTE ABSOLUTE 0.07 K/uL (0-1); LYMPHOCYTES # (AUTO) 2.7 K/uL (1.0-4.8); LYMPHOCYTES % (AUTO) 27.1 % (21.0-51.0); MEAN CORPUSCULAR HEMOGLOBIN 30.1 pg (27.0-33.0); MEAN CORPUSCULAR HGB CONC 34.3 g/dL (32.0-36.0); MEAN CORPUSCULAR VOLUME 87.7 fL (79-99); MONOCYTES # (AUTO) 0.9 K/uL (0.1-1.0); MONOCYTES % (AUTO) 8.6 % (3.0-13.0); NEUTROPHILS # (AUTO) 6.3 K/uL (1.8-7.7); NEUTROPHILS % (AUTO) 63.2 % (40.0-77.0); PLATELET COUNT (AUTO) 216 K/uL (130-400); RED BLOOD CELL COUNT(AUTO) 4.15 MIL/uL (4.00-5.50); RED CELL DISTRIBUTION WIDTH 13.2 % (11.0-15.5)
[2024-10-06 04:27] LABS: ALBUMIN 3.8 g/dL (3.5-5.0); BILIRUBIN,TOTAL 0.3 mg/dL (0.2-1.0); CREATININE 0.9 mg/dL (0.5-1.0); MAGNESIUM 2.2 mg/dL (1.80-2.40); POTASSIUM 4.4 mmol/L (3.5-5.1)
--- NOTE | 2024-10-06 06:08 | NUR ---
orthostatic vs lying 134/69 hr 63 sitting 142/72 hr 68 standing 145/73 hr 70
--- NOTE | 2024-10-06 08:15 | CONS ---
GASTROENTEROLOGY CONSULTATION NOTE Date of Consultation: Oct 06, 2024 Time of Consultation: 08:15 History of Present Illness: [ ] Review of Systems: CONSTITUTIONAL: No malaise or change in sensation of wellbeing. ENMT: No rhinorrhea, otorrhea, sinus pain, ear ache. CARDIOVASCULAR: No angina, palpitations, orthopnea or paroxysmal dyspnea. RESPIRATORY: No SOB. GASTROINTESTINAL: No abdominal pain, nausea, vomiting, diarrhea, hematemesis, melena or change in the patient's habitual bowel movements consistency/number. GENITOURINARY: No dysuria, hematuria or change in bladder continence. MUSCULOSKELETAL: No new muscle pain or decrease in muscular strength. No new joint swelling, redness or tenderness. SKIN: No new rash. Past Medical History: [ ] Past Surgical History: [ ] Past Social History: [ ] Family History: [ ] Coded Allergies: hydromorphone (Verified Allergy, Severe, 10/01/15) meperidine (Verified Allergy, Severe, 10/01/15) sitagliptin (Verified Allergy, Unknown, 10/05/24) Physical Exam: GEN: Awake, alert, oriented in person, time and place, and in no acute distress. HEENT: No sinus tenderness. Tympanic membranes were not examined. No rhinorrhea. Oral pharyngeal mucosa is pink, moist and within normal limits. Neck is supple with no cervical lymphadenopathy, thyromegaly or JVD. CHEST: Inspection, palpation and percussion of the chest were unremarkable. Lung auscultation revealed normal breath sounds bilaterally. CARDIAC: PMI is within normal limits. Heart sounds are regular. Normal S1, S2. No gallop or murmur. ABD: Soft, non-tender and not distended. No peritoneal signs on palpation. No organomegaly. Normal bowel sounds. EXT: No cyanosis or clubbing. No edema. SKIN: Intact. No rashes. JOINTS: No evidence of synovitis or acute arthritis. NEURO: Alert and oriented to name, place and person. Cranial nerve examination is unremarkable. No focal motor deficits. Normal speech. Gait is normal. Strength is normal. Vital Sign (Last 24 Hours) 10/05/24 10/06/24 10/06/24 22:21 04:00 06:39 Temp 97.5 Pulse 75 Resp 18 B/P (MAP) 153/74 Pulse Ox 97 O2 Delivery N/A Room Air O2 Flow Rate 0 FiO2 21 Intake & Output (last 24hrs) 10/05/24 10/05/24 10/06/24 15:00 23:00 07:00 Intake Total 400 ml Balance 400 ml Laboratory: [ ] Laboratory: Test 10/06/24 05:47 10/06/24 03:36 10/05/24 11:22 10/05/24 10:47 Range/Units Whole Blood Glucose 150 H 70-110 MG/DL White Blood Count 10.0 # 4.8-10.8 K/uL Red Blood Count 4.15 4.00-5.50 MIL/uL Hemoglobin 12.5 12.0-16.0 g/dL Hematocrit 36.4 36-48 % Mean Corpuscular Volume 87.7 79-99 fL Mean Corpuscular Hemoglobin 30.1 27.0-33.0 pg Mean Corpuscular Hemoglobin Concent 34.3 32.0-36.0 g/dL Red Cell Distribution Width 13.2 11.0-15.5 % Platelet Count 216 130-400 K/uL Mean Platelet Volume 11.0 H 7.5-10.5 fL Immature Granulocyte % (Auto) 0.7 0-1 % Neutrophils (%) (Auto) 63.2 40.0-77.0 % Lymphocytes (%) (Auto) 27.1 21.0-51.0 % Monocytes (%) (Auto) 8.6 3.0-13.0 % Eosinophils (%) (Auto) 0.2 0.0-8.0 % Basophils (%) (Auto) 0.2 0.0-5.0 % Neutrophils # (Auto) 6.3 1.8-7.7 K/uL Lymphocytes # (Auto) 2.7 1.0-4.8 K/uL Monocytes # (Auto) 0.9 0.1-1.0 K/uL Eosinophils # (Auto) 0.02 0.00-0.70 K/uL Basophils # (Auto) 0.02 0.00-0.20 K/uL Absolute Immature Granulocyte (auto 0.07 0-1 K/uL Nucleated Red Blood Cells 0.0 0.0-0.19 % Sodium Level 135 L 136-145 mmol/L Potassium Level 4.4 3.5-5.1 mmol/L Chloride Level 102 101-111 mmol/L Carbon Dioxide Level 23 21-32 mmol/L Blood Urea Nitrogen 24 H 7-18 mg/dL Creatinine 0.9 0.5-1.0 mg/dL Glomerular Filtration Rate Calc 69 >90 mL/min Random Glucose 146 H 70-105 mg/dL Total Calcium 8.8 8.5-10.1 mg/dL Magnesium Level 2.20 1.80-2.40 mg/dL Total Bilirubin 0.3 # 0.2-1.0 mg/dL Aspartate Amino Transf (AST/SGOT) 53 H 10-37 U/L Alanine Aminotransferase (ALT/SGPT) 41 12-78 U/L Alkaline Phosphatase 77 # 50-136 U/L Total Protein 7.0 6.0-8.3 g/dL Albumin 3.8 3.5-5.0 g/dL Lipase 170 H 16-77 U/L Urine Color COLORLESS YELLOW Urine Appearance CLEAR CLEAR Urine pH 5.5 5.0-8.0 Urine Specific [place] 1.007 1.001-1.031 Urine Protein NEGATIVE NEGATIVE mg/dL Urine Glucose (UA) TRACE H NEGATIVE mg/dL Urine Ketones NEGATIVE NEGATIVE mg/dL Urine Occult Blood NEGATIVE NEGATIVE Urine Nitrate NEGATIVE NEGATIVE Urine Bilirubin NEGATIVE NEGATIVE mg/dL Urine Urobilinogen 0.2 0.2-1.0 mg/dL Urine Leukocyte Esterase NEGATIVE NEGATIVE Lucy/uL Urine RBC 0-1 0-1 /HPF Urine WBC 0-1 0-1 /HPF Urine Squamous Epithelial Cells RARE 0-2 /HPF Urine Bacteria None None Seen /HPF Urine Osmolality 286 50-1200 mOsm/kg Whole Blood Ketones Quantitative 0.3 0.0-0.6 mmol/L Lactic Acid Level 1.7 0.8-2.5 mmol/L Test 10/05/24 06:00 Range/Units Erythrocyte Sedimentation Rate 5 0-30 MM/HR Prothrombin Time 10.0 9.6-11.6 SEC Prothromb Time International Ratio 0.94 0.85-1.15 Activated Partial Thromboplast Time 23.8 L 26.3-35.5 SEC D-Dimer Quantitative (PE/DVT) 315 0-500 ng/mL Hemoglobin A1c 8.3 H 4.0-6.0 % Estimated Average Glucose (eAG) 192 H 70-126 mg/dL Serum Osmolality 294 278-305 mOsm/kg Direct Bilirubin 0.1 0.0-0.3 mg/dL Lactate Dehydrogenase 196 81-234 U/L Total Creatine Kinase 49 # 21-232 U/L Troponin I High Sensitivity 7.8 4-50 ng/L C-Reactive Protein, Quantitative < 0.50 L 0.5-3.0 mg/L Triglycerides Level 475 H 30-200 mg/dL Cholesterol Level 166 <200 mg/dL LDL Cholesterol 68 0-99 mg/dL HDL Cholesterol 58 35-85 mg/dL Amylase Level 139 #H 25-115 U/L Procalcitonin 0.05 0.05-0.5 ng/mL Thyroid Stimulating Hormone (TSH) 9.09 H 0.36-3.74 uIU/mL Current Medications Medications (Trade) Dose Ordered Sig/Claudia Route PRN Reason Start Time Stop Time Status Last Admin Dose Admin Acetaminophen (TYLenol 325MG TAB) 650 mg Q6H PRN PO MILD PAIN (1-3) 10/05/24 09:30 11/04/24 09:29 Albuterol (DUOneb) 1 udvial Q6H PRN IH SHORTNESS OF BREATH 10/05/24 09:30 11/04/24 09:29 Aspirin (Aspirin 81mg Ec Tab) 81 mg DAILY PO 10/06/24 09:00 11/05/24 08:59 Atorvastatin Calcium (LIPItor 20MG) 20 mg HS PO 10/05/24 21:30 11/04/24 21:29 10/05/24 22:00 20 MG Dextrose (D50w) 50 ml AD PRN IV HYPOGLYCEMIA PROTOCOL 10/05/24 09:30 11/04/24 09:29 Docusate Sodium (COLace 100MG CAP) 100 mg BID PO 10/05/24 21:00 11/04/24 20:59 10/05/24 21:06 100 MG Enoxaparin Sodium (Lovenox) 30 mg DAILY SQ 10/06/24 09:00 11/05/24 08:59 Famotidine (Pepcid 20mg Vial) 20 mg Q48H IV 10/05/24 21:00 10/05/24 10:05 DC Glucagon (Glucagon 1mg Kit) 1 mg AD PRN IM HYPOGLYCEMIA PROTOCOL 10/05/24 09:30 11/04/24 09:29 Hydralazine HCl (APRESOLine 20MG INJ) 5 mg Q6H PRN IV ADMINISTER FOR SBP > 160 10/05/24 10:00 11/04/24 09:59 Insulin Glargine (LANtus 100 UNITS/ML 10 ML VIAL) 15 units Q24H SQ 10/05/24 21:05 11/04/24 21:04 10/05/24 21:16 15 UNITS Insulin Human Regular (humuLIN R 100 UNIT/ML 3ML) INSULIN SLIDING SCAL... ACHS SQ 10/05/24 11:30 11/04/24 11:29 10/05/24 21:07 2 UNIT Montelukast Sodium (SinguLAIR) 10 mg DAILY PO 10/06/24 09:00 11/05/24 08:59 Ondansetron HCl (zoFRAN 4MG INJ) 4 mg Q6H PRN IVP NAUSEA/VOMITING 10/05/24 09:30 11/04/24 09:29 Pantoprazole Sodium (PROTonix 40MG INJ) 40 mg Q24H IVP 10/05/24 10:30 11/04/24 10:29 10/05/24 12:56 40 MG Polyethylene Glycol (MIRalax 3350 17 GM POWD.PACK) 17 gm DAILY PRN PO constipation 10/05/24 11:30 11/04/24 11:29 Sodium Chloride 1,000 ml @ 75 mls/hr [id number] IV 10/05/24 09:30 11/04/24 09:29 10/05/24 12:56 75 MLS/HR Thiamine HCl (Vitamin B-1) 100 mg DAILY IVP 10/06/24 09:00 11/05/24 08:59 Diagnostics / Radiology: [COPY/PASTE HERE IF NO REPORTS PLEASE DELETE SECTION] Assessment: [ ] Plan: [ ] KAYLEE LEIVA [facility] Oct 06, 2024 08:15
--- NOTE | 2024-10-06 09:43 | CONS ---
INFECTIOUS DISEASE CONSULTATION NOTE DATE OF SERVICE: 10/05/2024 REQUESTING PHYSICIAN: Facundo Carrillo MD REASON FOR CONSULTATION: Antibiotic management. HISTORY OF PRESENT ILLNESS: A 69-year-old female with diabetes mellitus, obesity, hypertension, and UTI who was brought to the emergency room with syncopal episode and some weakness. The patient complained of nausea, vomiting. The patient claims she was diagnosed with UTI, for which she was given Keflex and Bactrim. Denies dysuria or urinary frequency. Urinalysis has been done, which came back negative. Imaging of the abdomen does show presence of fecal material. Denies rashes or itchess. No nausea, vomiting. PAST MEDICAL HISTORY: * Diabetes mellitus. * UTI. * Obesity. * Hypertension. PAST SURGICAL HISTORY: Denies. ALLERGIES: No known drug allergies. CURRENT MEDICATIONS: Reviewed. SOCIAL HISTORY: Denies alcohol, tobacco or illicit drug use. FAMILY HISTORY: Positive for diabetes mellitus. REVIEW OF SYSTEMS: Greater than 10 systems were reviewed, negative except documented as above. PHYSICAL EXAMINATION: GENERAL: Elderly female, awake, not in distress . VITAL SIGNS: Temperature 98.6, pulse 66, respiratory rate 18, BP 144/72. EYES: No icterus. Pupils equal and reactive. HENT: No oral thrush seen. Moist oral mucosa. NECK: Supple. No JVD or thyromegaly. LUNGS: Good air entry. No rales. No rhonchi. CARDIOVASCULAR: S1, S2 regular. No murmur heard. ABDOMEN: Obese, soft, nontender. Bowel sound is present. CENTRAL NERVOUS SYSTEM: Awake, alert, oriented x 3. No focal deficits. SKIN: No rashes. No itchiness. LYMPHATIC: No peripheral lymphadenopathy. BACK: No deformity. No pressure ulcer. HEMATOLOGIC: No bleeding or petechial lesions seen. MUSCULOSKELETAL: No joint swelling, erythema or tenderness. LABORATORY DATA: Hemoglobin A1c 8.3. Sodium 126, potassium 4.5, BUN 32, creatinine 1.3. WBC 13.4, hemoglobin 14.1, platelets 220. Urinalysis negative. RADIOLOGY: Chest x-ray unremarkable. CT of the abdomen shows hematuria. CT head is negative. ASSESSMENT: A 69-year-old female presenting with syncope and weakness. CURRENT PROBLEMS: Include: * Dehydration. * Hyponatremia. * Syncope. * Leukocytosis due to steroid use. * Diabetes mellitus with hemoglobin A1c of 8.3. * Obesity. PLAN: * No antibiotic at this time. * Continue hydration. * Correct hyponatremia. * Continue nutritional support. * Continue antidiabetic. * Continue pain management. * Monitor renal function. * The patient will be followed up closely. TID: [id number] RECEIPT: [id number]
--- NOTE | 2024-10-06 09:53 | PN ---
[facility] PROGRESS NOTE Date of Service: Oct 06, 2024 Time of Service: 09:42 SUBJECTIVE: 10/05/2024 -69 female with underlying history of hypertension, type 2 diabetes mellitus, history of cardiac murmur diagnosed in 1994, obesity, asthma who presented to the ER after a syncopal episode. Patient close to 4:00 a.m. woke up to use the restroom and had some episode of nausea and felt diaphoretic and she found herself on the floor. She denies any myalgias, tongue biting, urinary or fecal incontinence. She has been sick for about a week and has been dealing with a urinary tract infection. Initially she took a course of Keflex and had followed up with her primary care physician who prescribed her another course of Bactrim after she complained of having dysuria and urinary frequency. Has been having a lot of itching in the genitourinary region and she has been prescribed fluconazole for concerns for yeast infection. Prior to getting ill, patient is ambulatory at home. She has history of hypertension and takes losartan if her blood pressure is greater than 140/90. She has a history of type 2 diabetes mellitus and is on outpatient insulin treatment. She has been having episodes of nausea and vomiting today with some mild epigastric discomfort. She denies a ny headache or focal weakness of her upper or lower extremity since the syncopal episode today. She also saw her PCP for shoulder pain and was prescribed some steroids. Steroids caused her to have itching and she stopped taking the medication and did not take any steroids yesterday. On presentation to the hospital, patient was noted to be afebrile with T-max of 98.6 F, heart rate of 66. Blood pressure including orthostatic vitals showed BP initially of 144/70 lying down, 142/68 sitting, and 126/59 when standing up and patient reported feeling dizzy when standing up. [place] [address], hemoglobin of 14.1, platelet count of 170571. BMP remarkable for corrected sodium of 126, potassium 4.5, BUN of 32, creatinine 1.3, troponin of 7.8. 10/06/2024 - patient is seen at bedside in room 402, patient is asymptomatic and is feeling better . Patient is hemodynamically stable, white blood count, sodium, renal function have improved and a lipase is trending down. Pending Infectious Disease and Gastroenterology recommendations, we will plan to discharge the patient once cleared by them. REVIEW OF SYSTEMS CONSTITUTIONAL: Fatigue, debility since the fall NEUROLOGICAL: Denies headache, amaurosis fugax, motor weakness, sensory deficit, vertigo/spinning sensation, gait abnormalities, or tremors. ENT: No hearing loss, otalgia, otorrhea, rhinitis, rhinorrhea, hoarseness, or sore throat. CARDIOVASCULAR: Reports having history of cardiac murmur, reports having syncopal episode today PULMONARY: Denies any shortness of breath, cough, phlegm/sputum, hemoptysis, pleuritic chest pain. SLEEP: Denies morning headaches, daytime somnolence or napping. Denies difficulty falling asleep, staying asleep, waking from sleep. Denies knowledge of snoring. GASTROINTESTINAL: Nausea, vomiting, epigastric abdominal pain, abdominal pain is not radiating to the back GENITOURINARY: itching ENDOCRINOLOGIC: Denies polyuria, polydipsia, polyphagia or heat/cold intolerances. HEMATOLOGIC: Denies thrombophilia/previous clots, or coagulopathy/bleeding disorders. ONCOLOGIC: Denies personal history of malignancy. DERMATOLOGIC: Denies rashes or pruritus. PSYCHIATRIC: Denies any suicidal or homicidal ideation. Denies hallucinations. PHYSICAL EXAM GENERAL APPEARANCE: The patient is awake, alert, and oriented, in no acute cardiopulmonary distress. NEUROLOGICAL: Cranial nerves II-XII grossly intact. Motor is 5/5 in bilateral upper and lower extremities proximal to distal. No sensory deficits. HEENT: Face is symmetric. Pupils are equal and reactive. Extraocular movements are intact. NECK: Supple. No JVD. No thyromegaly. No submental, submandibular, pre- /postauricular, occipital or supraclavicular lymphadenopathy. CHEST: Normal chest expansion. No Telemetry. LUNGS: Absence of any rales, rhonchi or any wheezing. CARDIOVASCULAR: Regular. S1 and S2 normal. No appreciable rubs, murmurs or gallops. ABDOMEN: Soft, mild tenderness to palpation of the epigastric region : Deferred. No Scott. EXTREMITIES: Non-edematous and not cyanotic. No clubbing. Good capillary refill. SKIN: No skin breakdown. Vital Signs (last 8hr) Date Time Temp Pulse Resp B/P (MAP) Pulse Ox O2 Delivery O2 Flow Rate FiO2 6/16/25 08:00 98.1 77 18 166/68 100 Room Air 21 10/06/24 06:39 75 18 N/A Room Air 21 10/06/24 04:00 97.5 58 20 153/74 97 Room Air LABS: Laboratory: Test 10/06/24 05:47 10/06/24 03:36 10/05/24 11:22 10/05/24 10:47 Range/Units Whole Blood Glucose 150 H 70-110 MG/DL White Blood Count 10.0 # 4.8-10.8 K/uL Red Blood Count 4.15 4.00-5.50 MIL/uL Hemoglobin 12.5 12.0-16.0 g/dL Hematocrit 36.4 36-48 % Mean Corpuscular Volume 87.7 79-99 fL Mean Corpuscular Hemoglobin 30.1 27.0-33.0 pg Mean Corpuscular Hemoglobin Concent 34.3 32.0-36.0 g/dL Red Cell Distribution Width 13.2 11.0-15.5 % Platelet Count 216 130-400 K/uL Mean Platelet Volume 11.0 H 7.5-10.5 fL Immature Granulocyte % (Auto) 0.7 0-1 % Neutrophils (%) (Auto) 63.2 40.0-77.0 % Lymphocytes (%) (Auto) 27.1 21.0-51.0 % Monocytes (%) (Auto) 8.6 3.0-13.0 % Eosinophils (%) (Auto) 0.2 0.0-8.0 % Basophils (%) (Auto) 0.2 0.0-5.0 % Neutrophils # (Auto) 6.3 1.8-7.7 K/uL Lymphocytes # (Auto) 2.7 1.0-4.8 K/uL Monocytes # (Auto) 0.9 0.1-1.0 K/uL Eosinophils # (Auto) 0.02 0.00-0.70 K/uL Basophils # (Auto) 0.02 0.00-0.20 K/uL Absolute Immature Granulocyte (auto 0.07 0-1 K/uL Nucleated Red Blood Cells 0.0 0.0-0.19 % Sodium Level 135 L 136-145 mmol/L Potassium Level 4.4 3.5-5.1 mmol/L Chloride Level 102 101-111 mmol/L Carbon Dioxide Level 23 21-32 mmol/L Blood Urea Nitrogen 24 H 7-18 mg/dL Creatinine 0.9 0.5-1.0 mg/dL Glomerular Filtration Rate Calc 69 >90 mL/min Random Glucose 146 H 70-105 mg/dL Total Calcium 8.8 8.5-10.1 mg/dL Magnesium Level 2.20 1.80-2.40 mg/dL Total Bilirubin 0.3 # 0.2-1.0 mg/dL Aspartate Amino Transf (AST/SGOT) 53 H 10-37 U/L Alanine Aminotransferase (ALT/SGPT) 41 12-78 U/L Alkaline Phosphatase 77 # 50-136 U/L Total Protein 7.0 6.0-8.3 g/dL Albumin 3.8 3.5-5.0 g/dL Lipase 170 H 16-77 U/L Urine Color COLORLESS YELLOW Urine Appearance CLEAR CLEAR Urine pH 5.5 5.0-8.0 Urine Specific [place] 1.007 1.001-1.031 Urine Protein NEGATIVE NEGATIVE mg/dL Urine Glucose (UA) TRACE H NEGATIVE mg/dL Urine Ketones NEGATIVE NEGATIVE mg/dL Urine Occult Blood NEGATIVE NEGATIVE Urine Nitrate NEGATIVE NEGATIVE Urine Bilirubin NEGATIVE NEGATIVE mg/dL Urine Urobilinogen 0.2 0.2-1.0 mg/dL Urine Leukocyte Esterase NEGATIVE NEGATIVE Lucy/uL Urine RBC 0-1 0-1 /HPF Urine WBC 0-1 0-1 /HPF Urine Squamous Epithelial Cells RARE 0-2 /HPF Urine Bacteria None None Seen /HPF Urine Osmolality 286 50-1200 mOsm/kg Whole Blood Ketones Quantitative 0.3 0.0-0.6 mmol/L Lactic Acid Level 1.7 0.8-2.5 mmol/L Test 10/05/24 06:00 Range/Units Erythrocyte Sedimentation Rate 5 0-30 MM/HR Prothrombin Time 10.0 9.6-11.6 SEC Prothromb Time International Ratio 0.94 0.85-1.15 Activated Partial Thromboplast Time 23.8 L 26.3-35.5 SEC D-Dimer Quantitative (PE/DVT) 315 0-500 ng/mL Hemoglobin A1c 8.3 H 4.0-6.0 % Estimated Average Glucose (eAG) 192 H 70-126 mg/dL Serum Osmolality 294 278-305 mOsm/kg Direct Bilirubin 0.1 0.0-0.3 mg/dL Lactate Dehydrogenase 196 81-234 U/L Total Creatine Kinase 49 # 21-232 U/L Troponin I High Sensitivity 7.8 4-50 ng/L C-Reactive Protein, Quantitative < 0.50 L 0.5-3.0 mg/L Triglycerides Level 475 H 30-200 mg/dL Cholesterol Level 166 <200 mg/dL LDL Cholesterol 68 0-99 mg/dL HDL Cholesterol 58 35-85 mg/dL Amylase Level 139 #H 25-115 U/L Procalcitonin 0.05 0.05-0.5 ng/mL Thyroid Stimulating Hormone (TSH) 9.09 H 0.36-3.74 uIU/mL Current Medications Medications (Trade) Dose Ordered Sig/Claudia Route PRN Reason Start Time Stop Time Status Last Admin Dose Admin Acetaminophen (TYLenol 325MG TAB) 650 mg Q6H PRN PO MILD PAIN (1-3) 10/05/24 09:30 11/04/24 09:29 Albuterol (DUOneb) 1 udvial Q6H PRN IH SHORTNESS OF BREATH 10/05/24 09:30 11/04/24 09:29 Aspirin (Aspirin 81mg Ec Tab) 81 mg DAILY PO 10/06/24 09:00 11/05/24 08:59 Atorvastatin Calcium (LIPItor 20MG) 20 mg HS PO 10/05/24 21:30 11/04/24 21:29 10/05/24 22:00 20 MG Dextrose (D50w) 50 ml AD PRN IV HYPOGLYCEMIA PROTOCOL 10/05/24 09:30 11/04/24 09:29 Docusate Sodium (COLace 100MG CAP) 100 mg BID PO 10/05/24 21:00 11/04/24 20:59 10/05/24 21:06 100 MG Enoxaparin Sodium (Lovenox) 30 mg DAILY SQ 10/06/24 09:00 11/05/24 08:59 Famotidine (Pepcid 20mg Vial) 20 mg Q48H IV 10/05/24 21:00 10/05/24 10:05 DC Glucagon (Glucagon 1mg Kit) 1 mg AD PRN IM HYPOGLYCEMIA PROTOCOL 10/05/24 09:30 11/04/24 09:29 Hydralazine HCl (APRESOLine 20MG INJ) 5 mg Q6H PRN IV ADMINISTER FOR SBP > 160 10/05/24 10:00 11/04/24 09:59 Insulin Glargine (LANtus 100 UNITS/ML 10 ML VIAL) 15 units Q24H SQ 10/05/24 21:05 11/04/24 21:04 10/05/24 21:16 15 UNITS Insulin Human Regular (humuLIN R 100 UNIT/ML 3ML) INSULIN SLIDING SCAL... ACHS SQ 10/05/24 11:30 11/04/24 11:29 10/05/24 21:07 2 UNIT Montelukast Sodium (SinguLAIR) 10 mg DAILY PO 10/06/24 09:00 11/05/24 08:59 Ondansetron HCl (zoFRAN 4MG INJ) 4 mg Q6H PRN IVP NAUSEA/VOMITING 10/05/24 09:30 11/04/24 09:29 Pantoprazole Sodium (PROTonix 40MG INJ) 40 mg Q24H IVP 10/05/24 10:30 11/04/24 10:29 10/05/24 12:56 40 MG Polyethylene Glycol (MIRalax 3350 17 GM POWD.PACK) 17 gm DAILY PRN PO constipation 10/05/24 11:30 11/04/24 11:29 Sodium Chloride 1,000 ml @ 75 mls/hr [id number] IV 10/05/24 09:30 11/04/24 09:29 10/05/24 12:56 75 MLS/HR Thiamine HCl (Vitamin B-1) 100 mg DAILY IVP 10/06/24 09:00 11/05/24 08:59 DIAGNOSTICS / RADIOLOGY: [ ] ASSESSMENT: Syncope with fall, POA Orthostasis, POA Recent history of recurrent urinary tract infection currently on outpatient Bactrim, POA Acute kidney injury, POA , resolved Moderate Hyponatremia, POA, hypovolemic History of cardiac murmur, POA Uncontrolled hyperglycemia, POA Type 2 diabetes mellitus, POA History of hypothyroidism, POA Underlying history of asthma, POA Debility, POA Obesity, POA Leukocytosis, POA Hypertriglyceridemia POA PLAN: Syncope with fall, orthostasis, history of cardiac murmur, hypovolemia, ASTER Patient will be admitted to cardiac telemetry floor Continue patient on IV hydration with NS at 75 mL/hour, will hold anti HTN, once orthostasis resolves Follow cardiology recommendations Pending Carotid US Duplex Orthostatic vitals negative, Cardiology plan to follow up with the patient as outpatient. Recurrent urinary tract infections, leukocytosis We will follow up blood cultures, we will obtain urinalysis with urine culture, we will see if patient has active infection, we will request consultation with Infectious Disease, we will keep Bactrim on hold for now Follow Infectious Disease recommendations Type 2 diabetes, obesity, hypertriglyceridemia, rule out pancreatitis We will keep patient on sliding scale insulin a.c. and HS, we will start patient on basal Lantus while inpatient We will rule out any signs of pancreatitis, we will follow up on labs today We will request consultation with Physical therapy We will wait for Gastroenterology recommendations GI prophylaxis with pantoprazole DVT prophylaxis with Lovenox Plan to discharge the patient once cleared by Gastroenterology, Infectious Disease and ultrasound duplex of carotids ATTESTATION BY PHYSICIAN I have seen and examined the patient. I reviewed the documentation, medical decision making, and treatment plan as noted by the resident provider above. I agree with the findings and plan of care. Mathew Daniel MD, KEERTI K MD Oct 06, 2024 09:53
[2024-10-06] MEDS ORDERED: LEVO25CA5 PO (09:55)
[2024-10-06] MEDS: polyETHYLene GLYCol 3350 17 GM POWD.PACK PO PRN (10:15)
[2024-10-06] MEDS: THIAMINE HCL 100 MG/ML 2ML VIAL IVP SCH (10:16)
[2024-10-06] MEDS: ASPIRIN 81 MG EC TAB PO SCH (10:16)
[2024-10-06] MEDS: monteLUKAST sodIUM 10 MG TAB PO SCH (10:16)
[2024-10-06] MEDS: ENOXAPARIN SODIUM 30 MG/0.3 ML SQ SCH (10:17)
--- NOTE | 2024-10-06 10:46 | NUR ---
DCP: HOME Pt lives with her daughter Desi Bronson [phone], at daughter's home on [address] [facility]. Pt states she remains active, drives, independent. Completes ADLS on her own, uses no DME or in home care. Pt uses [facility] in for rx and PCP is Sonia Seals. Denies dc needs and will return home at hi Addendum: 10/06/24 at 1047 by MIRIAM HEAD SS Amended: Links added.
--- NOTE | 2024-10-06 12:42 | PN ---
[facility] CARDIOLOGY PROGRESS NOTE Date Patient Seen: Oct 06, 2024 Time of Visit: 12:35 Interval History: [no acute events overnight ,the patients orthostatic were positive yesterday , she received IV fluids , and repeat orthostatics are now negative. 2Decho LVEF 60-65 % no wall motion or valvular abnormalities. no telemetry events overnight , currently denies any cardiac symptoms or anginal equivalents ] Physical Examination: GENERAL: [No acute distress.] HEAD: [Normal with no signs of head trauma.] EYES: [PERRLA, EOMI, conjunctiva and sclera normal.] ENT: [Hearing grossly intact, normal oropharynx.] NECK: [Supple without JVD. There is no tenderness, lymphadenopathy, or masses. No thyromegaly. Normal carotid upstrokes without bruits.] LUNGS: [Clear breath sounds bilaterally.. No wheezes, or rhonchi.] HEART: [Normal rate and rhythm. Normal S1 and S2 without murmurs, gallop or rub.] VASC: [Peripheral pulses +2 bilaterally.] ABD: [Bowel sounds normal, soft, nontender, no masses, no organomegaly. No audible bruits.] : [Not examined] LYMPH: [No lymphadenopathy noted.] EXT: [No clubbing, cyanosis or edema.] SKIN: [No rashes or lesions noted.] NEURO: [Awake, alert, and oriented x3. No focal sensory or strength deficits noted.] Laboratory: [ ] Hematology Labs: Test 10/06/24 03:36 10/05/24 06:00 Range/Units White Blood Count 10.0 # 4.8-10.8 K/uL Red Blood Count 4.15 4.00-5.50 MIL/uL Hemoglobin 12.5 12.0-16.0 g/dL Hematocrit 36.4 36-48 % Mean Corpuscular Volume 87.7 79-99 fL Mean Corpuscular Hemoglobin 30.1 27.0-33.0 pg Mean Corpuscular Hemoglobin Concent 34.3 32.0-36.0 g/dL Red Cell Distribution Width 13.2 11.0-15.5 % Platelet Count 216 130-400 K/uL Mean Platelet Volume 11.0 H 7.5-10.5 fL Immature Granulocyte % (Auto) 0.7 0-1 % Neutrophils (%) (Auto) 63.2 40.0-77.0 % Lymphocytes (%) (Auto) 27.1 21.0-51.0 % Monocytes (%) (Auto) 8.6 3.0-13.0 % Eosinophils (%) (Auto) 0.2 0.0-8.0 % Basophils (%) (Auto) 0.2 0.0-5.0 % Neutrophils # (Auto) 6.3 1.8-7.7 K/uL Lymphocytes # (Auto) 2.7 1.0-4.8 K/uL Monocytes # (Auto) 0.9 0.1-1.0 K/uL Eosinophils # (Auto) 0.02 0.00-0.70 K/uL Basophils # (Auto) 0.02 0.00-0.20 K/uL Absolute Immature Granulocyte (auto 0.07 0-1 K/uL Nucleated Red Blood Cells 0.0 0.0-0.19 % Erythrocyte Sedimentation Rate 5 0-30 MM/HR Chemistry Labs: Test 10/06/24 11:37 10/06/24 03:36 10/05/24 10:47 10/05/24 06:00 Range/Units Whole Blood Glucose 181 H 70-110 MG/DL Sodium Level 135 L 136-145 mmol/L Potassium Level 4.4 3.5-5.1 mmol/L Chloride Level 102 101-111 mmol/L Carbon Dioxide Level 23 21-32 mmol/L Blood Urea Nitrogen 24 H 7-18 mg/dL Creatinine 0.9 0.5-1.0 mg/dL Glomerular Filtration Rate Calc 69 >90 mL/min Random Glucose 146 H 70-105 mg/dL Total Calcium 8.8 8.5-10.1 mg/dL Magnesium Level 2.20 1.80-2.40 mg/dL Total Bilirubin 0.3 # 0.2-1.0 mg/dL Aspartate Amino Transf (AST/SGOT) 53 H 10-37 U/L Alanine Aminotransferase (ALT/SGPT) 41 12-78 U/L Alkaline Phosphatase 77 # 50-136 U/L Total Protein 7.0 6.0-8.3 g/dL Albumin 3.8 3.5-5.0 g/dL Lipase 170 H 16-77 U/L Whole Blood Ketones Quantitative 0.3 0.0-0.6 mmol/L Lactic Acid Level 1.7 0.8-2.5 mmol/L Hemoglobin A1c 8.3 H 4.0-6.0 % Estimated Average Glucose (eAG) 192 H 70-126 mg/dL Serum Osmolality 294 278-305 mOsm/kg Direct Bilirubin 0.1 0.0-0.3 mg/dL Lactate Dehydrogenase 196 81-234 U/L Total Creatine Kinase 49 # 21-232 U/L Troponin I High Sensitivity 7.8 4-50 ng/L C-Reactive Protein, Quantitative < 0.50 L 0.5-3.0 mg/L Triglycerides Level 475 H 30-200 mg/dL Cholesterol Level 166 <200 mg/dL LDL Cholesterol 68 0-99 mg/dL HDL Cholesterol 58 35-85 mg/dL Amylase Level 139 #H 25-115 U/L Procalcitonin 0.05 0.05-0.5 ng/mL Thyroid Stimulating Hormone (TSH) 9.09 H 0.36-3.74 uIU/mL Coagulation Labs: Test 10/05/24 06:00 Range/Units Prothrombin Time 10.0 9.6-11.6 SEC Prothromb Time International Ratio 0.94 0.85-1.15 Activated Partial Thromboplast Time 23.8 L 26.3-35.5 SEC D-Dimer Quantitative (PE/DVT) 315 0-500 ng/mL Diagnostics / Radiology: [Copy/Paste Echos/Imaging Report here] Impression and Plan: [[Syncope Hyponatremia Hypertension Hyperlipidemia Type 2 diabetes Obesity ] Plan: [ #Syncope: Orthostatic versus vasovagal Patient has a similar event one year prior following urination Patient denies any postictal confusion or seizure-like activity Presenting ECG was nonischemic and initial troponin was negative. ACS has been ruled out 2D echocardiogram revealed a preserved systolic function (LVH of 60-65%), moderate LVH with no wall motion or valvular abnormalities There have been no tele events thus far and orthostatics are weakly positive (144 mmHg systolic supine and dropping to 126 mm of mercury upon standing) Continue with IV fluids and repeat orthostatics q.12 hours. Please keep patient on telemetry and monitor/replace electrolytes as needed orthostatic were positive yesterday , she received IV fluids , and repeat orthostatics are now negative. 2Decho LVEF 60-65 % no wall motion or valvular abnormalities. no telemetry events overnigh Her hyponatremia is likely secondary to dehydration/orthostasis. Orthostatic were positive yesterday , she received IV fluids , and repeat orthostatics are now negative. 2Decho LVEF 60-65 % no wall motion or valvular abnormalities. no telemetry events overnight We will plan for an outpatient event monitor Thank you for this consult , cardiology will sign off at this time , the patient will follow up in clinic 1-2 weeks after discharge ] Greg kirkland MD ] ATTESTATION BY PHYSICIAN I have seen and examined the patient, reviewed the above documentation, partici pated in medical decision making, made necessary modifications, and agree with the treatment plan as documented by my mid-level provider above. MD SHAVON Alamo JAMES R MD Oct 06, 2024 12:42
--- NOTE | 2024-10-06 17:53 | PN ---
INFECTIOUS DISEASE PROGRESS NOTE Date of Service: Oct 06, 2024 SUBJECTIVE: This is a 69-year-old female patient who was seen and examined in room 402. Patient is awake, alert and oriented x3. Patient is afebrile this morning, temperature is 98.1 and the WBC has trended down to 10.0. The urinalysis was negative. Patient was recently treated for Urinary tract infection with Keflex and Bactrim for approximately 2 weeks as outpatient. Patient denying dysuria and urinary frequency. No reports of nausea or vomiting. No antibiotics needed at this time. PHYSICAL EXAM EYES: Anicteric. Pupils equal and reactive. HENT: No oral thrush seen, moist Oral mucosa. NECK: Supple, no JVD or thyromegaly. LUNGS: Good air entry. No rales, no rhonchi. CARDIOVASCULAR: S1, S2 regular. No murmur heard. ABDOMEN: Soft, non tender, bowel sounds present, no organomegaly. CENTRAL NERVOUS SYSTEM: Awake, alert, oriented x 3. SKIN: No rashes, no swelling. LYMPHATICS: No peripheral lymphadenopathy. MUSCULOSKELETAL: No joint swelling, erythema or tenderness. EXTREMITIES: No cyanosis or clubbing. BACK: No deformity, no pressure ulcer. GENITOURINARY: No dysuria or hematuria. Vital Sign (Last 12 Hours) 10/06/24 10/06/24 10/06/24 10/06/24 06:39 08:00 08:00 08:00 Pulse 75 77 67 Resp 18 B/P (MAP) 146/70 159/77 Pulse Ox 100 100 100 O2 Delivery N/A Room Air Room Air* O2 Flow Rate 0 FiO2 21 21 10/06/24 10/06/24 10/06/24 10/06/24 08:00 08:00 12:00 16:00 Temp 98.1 98.6 98.6 Pulse 88 77 63 70 Resp 18 18 18 B/P (MAP) 144/75 166/68 163/73 158/72 Pulse Ox 99 100 99 158 O2 Delivery Room Air Room Air Room Air FiO2 21 21 21 Intake & Output (last 24hrs) 10/05/24 10/05/24 10/06/24 15:00 23:00 07:00 Intake Total 400 ml Balance 400 ml LABS: Laboratory: Test 10/06/24 16:08 10/06/24 03:36 10/05/24 11:22 10/05/24 10:47 Range/Units Whole Blood Glucose 133 H 70-110 MG/DL White Blood Count 10.0 # 4.8-10.8 K/uL Red Blood Count 4.15 4.00-5.50 MIL/uL Hemoglobin 12.5 12.0-16.0 g/dL Hematocrit 36.4 36-48 % Mean Corpuscular Volume 87.7 79-99 fL Mean Corpuscular Hemoglobin 30.1 27.0-33.0 pg Mean Corpuscular Hemoglobin Concent 34.3 32.0-36.0 g/dL Red Cell Distribution Width 13.2 11.0-15.5 % Platelet Count 216 130-400 K/uL Mean Platelet Volume 11.0 H 7.5-10.5 fL Immature Granulocyte % (Auto) 0.7 0-1 % Neutrophils (%) (Auto) 63.2 40.0-77.0 % Lymphocytes (%) (Auto) 27.1 21.0-51.0 % Monocytes (%) (Auto) 8.6 3.0-13.0 % Eosinophils (%) (Auto) 0.2 0.0-8.0 % Basophils (%) (Auto) 0.2 0.0-5.0 % Neutrophils # (Auto) 6.3 1.8-7.7 K/uL Lymphocytes # (Auto) 2.7 1.0-4.8 K/uL Monocytes # (Auto) 0.9 0.1-1.0 K/uL Eosinophils # (Auto) 0.02 0.00-0.70 K/uL Basophils # (Auto) 0.02 0.00-0.20 K/uL Absolute Immature Granulocyte (auto 0.07 0-1 K/uL Nucleated Red Blood Cells 0.0 0.0-0.19 % Sodium Level 135 L 136-145 mmol/L Potassium Level 4.4 3.5-5.1 mmol/L Chloride Level 102 101-111 mmol/L Carbon Dioxide Level 23 21-32 mmol/L Blood Urea Nitrogen 24 H 7-18 mg/dL Creatinine 0.9 0.5-1.0 mg/dL Glomerular Filtration Rate Calc 69 >90 mL/min Random Glucose 146 H 70-105 mg/dL Total Calcium 8.8 8.5-10.1 mg/dL Magnesium Level 2.20 1.80-2.40 mg/dL Total Bilirubin 0.3 # 0.2-1.0 mg/dL Aspartate Amino Transf (AST/SGOT) 53 H 10-37 U/L Alanine Aminotransferase (ALT/SGPT) 41 12-78 U/L Alkaline Phosphatase 77 # 50-136 U/L Total Protein 7.0 6.0-8.3 g/dL Albumin 3.8 3.5-5.0 g/dL Lipase 170 H 16-77 U/L Urine Color COLORLESS YELLOW Urine Appearance CLEAR CLEAR Urine pH 5.5 5.0-8.0 Urine Specific [place] 1.007 1.001-1.031 Urine Protein NEGATIVE NEGATIVE mg/dL Urine Glucose (UA) TRACE H NEGATIVE mg/dL Urine Ketones NEGATIVE NEGATIVE mg/dL Urine Occult Blood NEGATIVE NEGATIVE Urine Nitrate NEGATIVE NEGATIVE Urine Bilirubin NEGATIVE NEGATIVE mg/dL Urine Urobilinogen 0.2 0.2-1.0 mg/dL Urine Leukocyte Esterase NEGATIVE NEGATIVE Lucy/uL Urine RBC 0-1 0-1 /HPF Urine WBC 0-1 0-1 /HPF Urine Squamous Epithelial Cells RARE 0-2 /HPF Urine Bacteria None None Seen /HPF Urine Osmolality 286 50-1200 mOsm/kg Whole Blood Ketones Quantitative 0.3 0.0-0.6 mmol/L Lactic Acid Level 1.7 0.8-2.5 mmol/L Test 10/05/24 06:00 Range/Units Erythrocyte Sedimentation Rate 5 0-30 MM/HR Prothrombin Time 10.0 9.6-11.6 SEC Prothromb Time International Ratio 0.94 0.85-1.15 Activated Partial Thromboplast Time 23.8 L 26.3-35.5 SEC D-Dimer Quantitative (PE/DVT) 315 0-500 ng/mL Hemoglobin A1c 8.3 H 4.0-6.0 % Estimated Average Glucose (eAG) 192 H 70-126 mg/dL Serum Osmolality 294 278-305 mOsm/kg Direct Bilirubin 0.1 0.0-0.3 mg/dL Lactate Dehydrogenase 196 81-234 U/L Total Creatine Kinase 49 # 21-232 U/L Troponin I High Sensitivity 7.8 4-50 ng/L C-Reactive Protein, Quantitative < 0.50 L 0.5-3.0 mg/L Triglycerides Level 475 H 30-200 mg/dL Cholesterol Level 166 <200 mg/dL LDL Cholesterol 68 0-99 mg/dL HDL Cholesterol 58 35-85 mg/dL Amylase Level 139 #H 25-115 U/L Procalcitonin 0.05 0.05-0.5 ng/mL Thyroid Stimulating Hormone (TSH) 9.09 H 0.36-3.74 uIU/mL ASSESSMENT: Urinary tract infection recently treated with Keflex and Bactrim for approx imately 2 weeks as outpatient. Leukocytosis, recently treated with steroids as outpatient. Dehydration. Possible pancreatitis. Syncope, resolving. Diabetes mellitus. PLAN: No antibiotics needed at this time. Patient was treated with Keflex and Bactrim for approximately 2 weeks for UTI as outpatient. Continue IV fluids. Continue GI prophylaxis. Continue antidiabetics. Continue fall precautions. This case was reviewed and discussed with my supervising physician and the above assessment and plan was formulated and agreed upon. ATTESTATION BY PHYSICIAN I have seen and examined the patient. I reviewed the documentation, medical decision making, and treatment plan as noted by the mid-level provider above. I agree with the findings and plan of care. YOLIS ALVARADO MD, MIRTA L [facility] Oct 06, 2024 17:53
--- NOTE | 2024-10-06 18:28 | HMCIMG ---
US CAROTID DUPLEX HISTORY: Syncope COMPARISON: None TECHNIQUE: Duplex carotid arterial Doppler ultrasound study was performed. FINDINGS: The common, internal and external carotid arteries are visualized. The peak systolic velocities of right common carotid artery is 56 centimeters per second, right internal carotid artery is 104 centimeters per second, right external carotid artery is 62 centimeters per second, and right vertebral artery is 41 centimeters per second. Right internal carotid artery to right common carotid artery ratio is 1.9. Right vertebral artery is seen with antegrade flow. The peak systolic velocities of left common carotid artery is 39 centimeters per second, left internal carotid artery is 114 centimeters per second, left external carotid artery is 68 centimeters per second, and left vertebral artery is 40 centimeters per second. Left internal carotid artery to left common carotid artery ratio is 1.9. Left vertebral artery is seen with antegrade flow. There are bilateral echogenic plaques. IMPRESSION: 1. No hemodynamically significant lesion is seen of either extracranial carotid artery system.
[2024-10-07 00:41] VITALS: BP 164/68; PULSE 59; RESP 18; TEMP 98.3
[2024-10-07 03:51] VITALS: BP 157/71; PULSE 54; RESP 18; TEMP 97.9
[2024-10-07 04:44] LABS: BASOPHILS # (AUTO) 0.03 K/uL (0.00-0.20); BASOPHILS % (AUTO) 0.3 % (0.0-5.0); EOSINOPHILS # (AUTO) 0.07 K/uL (0.00-0.70); EOSINOPHILS % (AUTO) 0.7 % (0.0-8.0); HEMATOCRIT 37.4 % (36-48); IMMATURE GRANULOCYTE ABSOLUTE 0.04 K/uL (0-1); LYMPHOCYTES # (AUTO) 2.7 K/uL (1.0-4.8); LYMPHOCYTES % (AUTO) 26.1 % (21.0-51.0); MEAN CORPUSCULAR HEMOGLOBIN 30.4 pg (27.0-33.0); MEAN CORPUSCULAR HGB CONC 33.2 g/dL (32.0-36.0); MEAN CORPUSCULAR VOLUME 91.7 fL (79-99); MONOCYTES # (AUTO) 0.7 K/uL (0.1-1.0); MONOCYTES % (AUTO) 6.8 % (3.0-13.0); NEUTROPHILS # (AUTO) 6.7 K/uL (1.8-7.7); NEUTROPHILS % (AUTO) 65.7 % (40.0-77.0); PLATELET COUNT (AUTO) 152 K/uL (130-400); RED BLOOD CELL COUNT(AUTO) 4.08 MIL/uL (4.00-5.50); RED CELL DISTRIBUTION WIDTH 13.2 % (11.0-15.5); WHITE BLOOD COUNT (AUTO) 10.2 K/uL (4.8-10.8)
[2024-10-07 04:53] LABS: CREATININE 0.7 mg/dL (0.5-1.0); POTASSIUM 4.1 mmol/L (3.5-5.1)
[2024-10-07] MEDS: levoTHYROxine 25 MCG TABLET PO SCH (05:54)
[2024-10-07 06:21] VITALS: PULSE 56; RESP 18; O2SAT 95
[2024-10-07 08:00] VITALS: BP_SYST 128; BP_SYST 158; BP_SYST 160; BP_DIAS 65; BP_DIAS 74; BP_DIAS 77; PULSE 61; PULSE 64; PULSE 83; RESP 18; TEMP 97.9
--- NOTE | 2024-10-07 08:45 | DS ---
Discharge Summary Hospital Course Summary: 10/05/2024 -69 female with underlying history of hypertension, type 2 diabetes mellitus, history of cardiac murmur diagnosed in 1994, obesity, asthma who presented to the ER after a syncopal episode. Patient close to 4:00 a.m. woke up to use the restroom and had some episode of nausea and felt diaphoretic and she found herself on the floor. She denies any myalgias, tongue biting, urinary or fecal incontinence. She has been sick for about a week and has been dealing with a urinary tract infection. Initially she took a course of Keflex and had followed up with her primary care physician who prescribed her another course of Bactrim after she complained of having dysuria and urinary frequency. Has been having a lot of itching in the genitourinary region and she has been prescribed fluconazole for concerns for yeast infection. Prior to getting ill, patient is ambulatory at home. She has history of hypertension and takes losartan if her blood pressure is greater than 140/90. She has a history of type 2 diabetes mellitus and is on outpatient insulin treatment. She has been having episodes of nausea and vomiting today with some mild epigastric discomfort. She denies any headache or focal weakness of her upper or lower extremity since the syncopal episode today. She also saw her PCP for shoulder pain and was prescribed some steroids. Steroids caused her to have itching and she stopped taking the medication and did not take any steroids yesterday. On presentation to the hospital, patient was noted to be afebrile with T-max of 98.6 F, heart rate of 66. Blood pressure including orthostatic vitals showed BP initially of 144/70 lying down, 142/68 sitting, and 126/59 when standing up and patient reported feeling dizzy when standing up. [place] [address], hemoglobin of 14.1, platelet count of 013589. BMP remarkable for corrected sodium of 126, potassium 4.5, BUN of 32, creatinine 1.3, troponin of 7.8. 10/06/2024 - patient is seen at bedside in room 402, patient is asymptomatic and is feeling better . Patient is hemodynamically stable, white blood count, sodium, renal function have improved and a lipase is trending down. Pending Infectious Disease and Gastroenterology recommendations, we will plan to discharge the patient once cleared by them. 10/07/2024 - patient had carotid Doppler which is not significant for any disease. Patient is hemodynamically stable and asymptomatic, patient has been cleared for discharge . Patient has been informed to follow up with Cardiology in 1-2 weeks. Patient has been given care instructions to avoid falls due to orthostatic hypotension . Wet Finisher(s): Cardiology, Infectious Disease Procedure(s): PATIENT: HILLARY GARCIA MR#: [id number] : 1955 SEX: F AGE: 69 LOCATION: ED ORDER 0 STATUS: REG ER REPORT#: [id number] SERVICE REASON: SYNCOPE ORDERING PHYSICIAN: LIDIA BLUE MD PROCEDURE: CXR1VW - CHEST 1VW CHEST 1VW HISTORY: Syncope COMPARISON: 10/01/2015 FINDINGS: A frontal projection of the chest was obtained. No acute pulmonary infiltrates is seen. The heart is borderline enlarged. Prominent interstitial markings are seen. Degenerative changes are seen. Aortic calcifications are seen. IMPRESSION: 1. No acute pulmonary infiltrate is seen. DICTATED BY: NIRMALA RODGERS MD DATE: 10/05/24732 ELECTRONICALLY SIGNED BY: NIRMALA RODGERS MD DATE: 10/05/24735 PATIENT: HILLARY GARCIA MR#: [id number] : 1955 SEX: F AGE: 69 [facility]: [facility] REPORT#: [id number] SERVICE 2 REASON: abdominal pain, recurrent UTI, syncope today ORDERING PHYSICIAN: YOVANI WALLER MD PROCEDURE: ABD PEL WO - CT ABDOMEN/PELVIS W/O CONTRAST CT ABDOMEN/PELVIS W/O CONTRAST HISTORY: Abdominal pain COMPARISON: 12/12/2021 TECHNIQUE: Multiple sequential axial images of the abdomen and pelvis were obtained from the dome of the diaphragm through symphysis pubis. Patient was not given contrast through intravenous route. Oral contrast was not given. FINDINGS: No pleural effusion is seen bilaterally. There is no evidence of parenchymal disease or pulmonary nodule of the visualized lower lungs. Degenerative changes of the thoracolumbar spine are present. The heart is not enlarged. Liver is enlarged measuring 18.9 cm. Post cholecystectomy changes are seen. The liver, spleen, adrenal glands and pancreas are unremarkable. There is no evidence of hydronephrosis bilaterally. No evidence of renal stone is seen. If there is clinical suspicion for pyelonephritis, urinalysis correlation is helpful. Fecal material is seen in the colon. There are normal size retroperitoneal and mesenteric lymph nodes. No ascites is seen. Atherosclerotic changes are present. Appendix is not well-seen limiting evaluation. There is mild diverticulosis. Pelvic sidewalls are symmetric bilaterally. Bladder is well distended without wall thickening. IMPRESSION: 1. Fecal material is seen in the colon. CT was performed with one or more following dose reduction techniques: automated exposure control, adjustment of the mA and kv according to patient's size, or use of a iterative reconstruction technique. DICTATED BY: NIRMALA RODGERS MD DATE: 10/05/24 1023 ELECTRONICALLY SIGNED BY: NIRMALA RODGERS MD DATE: 10/05/24 1028 PATIENT: HILLARY GARCIA MR#: [id number] : 1955 SEX: F AGE: 69 LOCATION: [facility] 8 STATUS: ADM IN REPORT#: [id number] SERVICE 2 REASON: syncope, fall ORDERING PHYSICIAN: YOVANI WALLER MD PROCEDURE: HEAD WO - CT HEAD/BRAIN W/O CONTRAST CT HEAD/BRAIN W/O CONTRAST HISTORY: Syncope COMPARISON: None TECHNIQUE: Multiple sequential axial images of the head were obtained from the base of the skull through vertex. Patient was not given contrast through intravenous route. FINDINGS: The ventricles and extraventricular CSF spaces are dilated consistent with cerebral atrophy. Nonspecific white matter changes seen. There is no midline shift, mass effect or herniation. No acute intracranial bleed is seen. Visualized portion of the paranasal sinuses are grossly within normal limits. IMPRESSION: 1. No acute intracranial bleed is seen. 2. Atrophy with white matter changes. CT was performed with one or more following dose reduction techniques: automated exposure control, adjustment of the mA and kv according to patient's size, or use of a iterative reconstruction technique. DICTATED BY: NIRMALA RODGERS MD DATE: 10/05/24 1021 ELECTRONICALLY SIGNED BY: NIRMALA RODGERS MD DATE: 10/05/24 1024 PATIENT: HILLARY GARCIA MR#: [id number] : 1955 SEX: F AGE: 69 LOCATION: [facility] ORDER 9 STATUS: ADM IN REPORT#: [id number] SERVICE 8 REASON: hx of cardiac murmur, syncope, heart clinic to read ORDERING PHYSICIAN: YOVANI WALLER MD PROCEDURE: ECHO CMP - ECHO 2-D COMPLETE APPROVED REPORT EXAM: Two-dimensional and M-mode echocardiogram with Doppler and color Doppler. Study Details: HTN ,HLD ,Diabtes M INDICATION ICD: hx of cardiac murmur Syncope 2D Dimensions RVDd 3.1 cm LVEF(%) 72.9 (>50%) LVED Vol(simp.) 76.2 mL IVSd 1.2 (0.7-1.1cm) FS(%) 41 % LVES Vol(simp.) 31.5 mL LVDd 3.4 (3.8-5.6cm) LA (2D) 3.2 (1.6-4.0cm) LVEF(%, simp.) 59 % PWd 1.1 (0.7-1.1cm) Ao Root(2D) 2.7 (2.0-3.7cm) LA ESV INDEX (4CH) 15.00 mL/m2 IVSs 1.3 cm LVOT diam 1.8 (1.8-2.4cm) LA ESV INDEX (2CH) 11.97 mL/m2 LVDs 2.0 (2.5-4.0cm) IVC diam 1.1 cm LA ESV INDEX (BP) 12.69 mL/m2 PWs 1.5 cm Deformation Strain Apical 4 -12.5 % Apical 2 -12.6 % Apical 3 -15.0 % Global Strain 13.3 % M-Mode Dimensions EPSS 0.2 cm LA (MM) 3.7 (1.6-4.0cm) Ao Root(MM) 2.6 (2.0-3.7cm) Aortic Valve AoV Vmax 2.1 m/s Ao Peak GR 17.7 mmHg LVOT Vmax 1.0 m/s AoV VTI 0.4 m Ao Mean GR 9.2 mmHg LVOT VTI 0.27 m HEIDY (VMAX) 1.25 cm2 Al P1/2T 813 ms HEIDY (VTI) 1.8 cm2 Mitral Valve MV E Vmax 67.8 cm/s DECEL Time 320 ms MV A Vmax 96.2 cm/s E/A ratio 0.7 TDI E/E' Medial 11.0 E/E' Lateral 8.5 Medial E' Peak V 6.18 cm/s Lateral E' Peak V 8.00 cm/s Pulmonary Valve PV Vmax 0.9 m/s PV VTI 0.19 m PV Mean GR 1.9 mmHg PV Peak GR 3.5 mmHg Tricuspid Valve TR Vmax 2.1 m/s RVSP 16.8 mmHg TR Peak GR 16.8 mmHg Left Ventricle Left ventricular cavity size is normal. There is normal LV segmental wall motion. Moderate concentric left ventricular hypertrophy. LVEF is 60-65%. Left ventricular filling pattern is normal for age. Right Ventricle The right ventricle is normal size. The right ventricular systolic function is n ormal. Atria The left atrial size is normal. The right atrium size is normal. Aortic Valve Trileaflet and sclerotic Trace aortic regurgitation. There is no aortic valvular stenosis. Mitral Valve Mild posterior mitral annular calcification present. There is trace mitral valve regurgitation noted. There is no mitral valve stenosis. Tricuspid Valve The tricuspid valve leaflets appear normal. trace tricuspid regurgitation. Pulmonic Valve Pulmonic valve is not well visualized. There is no pulmonic valvular regurgitation. Great Vessels The aortic root is normal in size. The ascending aorta is normal in size. The IVC is normal in size and collapses >50% with inspiration. Pericardium No pericardial effusion. Other Information Quality : Good Conclusion Left ventricular cavity size is normal. LVEF is 60-65% with normal LV segmental wall motion. Moderate concentric left ventricular hypertrophy. Left ventricular filling pattern is normal for age. The right ventricular systolic function is normal. Both atria are normal in size. No hemodynamically significant valvular abnormalities. No pericardial effusion. DICTATED BY: LANDY SANDS MD DATE: 10/05/24 1140 ELECTRONICALLY SIGNED BY: LANDY SANDS MD DATE: 10/05/24 1314 PATIENT: HILLARY GARCIA MR#: [id number] : 1955 SEX: F AGE: 69 LOCATION: H ORDER 1348 STATUS: ADM IN REPORT#: [id number] SERVICE 1346 REASON: syncope fall ORDERING PHYSICIAN: SASKIA EMRESON MD PROCEDURE: CAROTID - US CAROTID DUPLEX US CAROTID DUPLEX HISTORY: Syncope COMPARISON: None TECHNIQUE: Duplex carotid arterial Doppler ultrasound study was performed. FINDINGS: The common, internal and external carotid arteries are visualized. The peak systolic velocities of right common carotid artery is 56 centimeters per second, right internal carotid artery is 104 centimeters per second, right external carotid artery is 62 centimeters per second, and right vertebral artery is 41 centimeters per second. Right internal carotid artery to right common carotid artery ratio is 1.9. Right vertebral artery is seen with antegrade flow. The peak systolic velocities of left common carotid artery is 39 centimeters per second, left internal carotid artery is 114 centimeters per second, left external carotid artery is 68 centimeters per second, and left vertebral artery is 40 centimeters per second. Left internal carotid artery to left common carotid artery ratio is 1.9. Left vertebral artery is seen with antegrade flow. There are bilateral echogenic plaques. IMPRESSION: 1. No hemodynamically significant lesion is seen of either extracranial carotid artery system. DICTATED BY: NIRMALA RODGERS MD DATE: 10/06/241823 ELECTRONICALLY SIGNED BY: NIRMALA RODGERS MD DATE: 10/06/241827 Assessment/Plan: ASSESSMENT: Syncope with fall, POA Orthostasis, POA resolving Recent history of recurrent urinary tract infection currently on outpatient Bactrim, POA Acute kidney injury, POA , resolved Moderate Hyponatremia, POA, hypovolemic History of cardiac murmur, POA Uncontrolled hyperglycemia, POA Type 2 diabetes mellitus, POA History of hypothyroidism, POA Underlying history of asthma, POA Debility, POA Obesity, POA Leukocytosis, POA Hypertriglyceridemia POA Discharge Instructions: Continue home medications unless told otherwise Avoid medications that can worsen orthostatic hypotension and review your home medications with the primary physician. Steps to take to avoid syncopal episode due to orthostasis : Rise slowly and sit on side of the bed for a few minutes before standing. Standard slowly to reduce risk of dizziness or falls Drink plenty of water unless on fluid restriction Consider wearing thigh-high compression stockings if recommended to help maintain blood pressure Use assistive devices like walker or cane if recommended Avoid sudden movements Remove fall hazards at home like rugs, poor lighting, clutter Use grab bars in the bathroom or near stairs if needed Follow up with primary care within 1 week Patient to follow up with [facility] 1-2 weeks after discharge Return to the ER if you experience any fainting episode or if you have persistent dizziness or confusion Home Medications: Active Scripts Pantoprazole Sodium (Protonix) 40 Mg Ectab, 40 MG PO DAILY for 30 Days, #30 TAB.EC Prov:SILVINO BELLA MD 05/03/22 Reported Medications Levothyroxine Sodium (Levothyroxine) 25 Mcg Capsule, 1 CAP PO DAILY for 30 Days, #30 CAP 0 Refills 10/06/24 Insulin NPL/Insulin Lispro (Humalog Mix 75/25) 100 Unit/Ml (75-25) Inj, 30 UNITS SQ HS, ML 10/05/24 Insulin NPL/Insulin Lispro (Humalog Mix 75/25) 100 Unit/Ml (75-25) Inj, 40 UNIT SQ AM, ML 10/05/24 Losartan Potassium (Losartan Potassium) 50 Mg Tablet, 50 MG PO HS, TAB 10/05/24 Rosuvastatin Calcium (Rosuvastatin Calcium) 10 Mg Tablet, 10 MG PO HS, TAB 10/05/24 Montelukast Sodium (Montelukast Sodium) 10 Mg Tablet, 1 TAB PO DAILY for 30 Days, #30 TAB 0 Refills 10/05/24 Aspirin (ASPIRIN 81 MG ECTAB) 81 Mg Ectab, 81 MG PO DAILY, TAB.EC 10/01/15 Discontinued Reported Medications Calcium Carbonate/Vitamin D3 (Oyster Shell Calcium + D Tab) 1 Each Tablet, 1 EACH PO DAILY, TAB 10/01/15 Pravastatin Sodium (Pravastatin Sodium) 20 Mg Tablet, 20 MG PO DAILY, TAB 10/01/15 Lisinopril (Lisinopril) 20 Mg Tablet, 20 MG PO DAILY, TAB 10/01/15 Metformin HCl (Metformin HCl) 1,000 Mg Tablet, 1000 MG PO BID, TAB 10/01/15 Glipizide (Glucotrol) 5 Mg Tablet, 5 MG PO DAILY, TAB 10/01/15 Discontinued Scripts Cephalexin Monohydrate (Keflex) 500 Mg Cap, 500 MG PO QID for 7 Days, #28 CAP Prov:SILVINO BELLA MD 08/25/23 Ondansetron (Ondansetron Odt) 4 Mg Tab.rapdis, 4 MG PO BID for 5 Days, #10 TAB Prov:SILVINO BELLA MD 05/03/22 Ondansetron (Ondansetron Odt) 4 Mg Tab.rapdis, 4 MG PO TID for NAUSEA, #15 TAB Prov:BRENDEN MANE MD 12/12/21 Levofloxacin (Levaquin) 500 Mg Tablet, 500 MG PO DAILY, #5 TAB Prov:DALE DOWNS MD 10/02/15 Oseltamivir Phosphate (Tamiflu) 75 Mg Cap, 75 MG PO BID, #10 CAP Prov:DALE DOWNS MD 10/02/15 Benzonatate (Benzonatate) 100 Mg Capsule, 200 MG PO TID PRN for COUGH, #30 CAP Prov:DALE DOWNS MD 10/02/15 Continued Medications: Aspirin (Aspirin 81 Mg Ectab) 81 Mg Ectab 81 MG PO DAILY, TAB.EC Insulin NPL/Insulin Lispro (Humalog Mix 75/25) 100 Unit/Ml (75-25) Inj 40 UNIT SQ AM, ML Insulin NPL/Insulin Lispro (Humalog Mix 75/25) 100 Unit/Ml (75-25) Inj 30 UNITS SQ HS, ML Levothyroxine Sodium (Levothyroxine) 25 Mcg Capsule 1 CAP PO DAILY for 30 Days, #30 CAP 0 Refills Losartan Potassium (Losartan Potassium) 50 Mg Tablet 50 MG PO HS, TAB Montelukast Sodium (Montelukast Sodium) 10 Mg Tablet 1 TAB PO DAILY for 30 Days, #30 TAB 0 Refills Pantoprazole Sodium (Protonix) 40 Mg Ectab 40 MG PO DAILY for 30 Days, #30 TAB.EC Rosuvastatin Calcium (Rosuvastatin Calcium) 10 Mg Tablet 10 MG PO HS, TAB Time spent arranging discharge: 1-30 minutes ATTESTATION BY PHYSICIAN I have seen and examined the patient. I reviewed the documentation, medical decision making, and treatment plan as noted by the resident provider above. I agree with the findings and plan of care. Mathew Daniel MD, KEERTI K MD Oct 07, 2024 08:45
[2024-10-07 12:00] VITALS: BP 152/71; PULSE 64; RESP 18; TEMP 98.1
--- NOTE | 2024-10-07 12:08 | NUR ---
FOLLOW UP APPOINTMENT WITH PCP Multiple attempts made to schedule follow up appointment with PCP, Dr. Sotero Seals. content manager, Irina, for scheduling hospital and ER follow ups will be reaching out later in the day for appointment. Will contact patient directly to her phone number.
--- NOTE | 2024-10-07 12:14 | NUR ---
FOLLOW UP APPOINTMENT WITH CARDIOLOGY Appointment set for October 22, 2024 at 12:30 in [facility].
== END 2024-10-07 14:27 | disposition home or self-care (01) | DRG 312 ==
LOC: EDH 05:40 → EDHIP 09:12 → 4AH 16:45
PROVIDERS: ADMIT Internal Medicine; ATTEND Internal Medicine
DX: I95.1 Orthostatic hypotension (principal); N17.9 Acute kidney failure, unspecified; E87.1 Hypo-osmolality and hyponatremia; N39.0 Urinary tract infection, site not specified; E03.9 Hypothyroidism, unspecified; E11.65 Type 2 diabetes mellitus with hyperglycemia; E66.9 Obesity, unspecified; E78.1 Pure hyperglyceridemia; E86.0 Dehydration; E86.1 Hypovolemia; I10 Essential (primary) hypertension; I34.81 Nonrheumatic mitral (valve) annulus calcification; T38.0X5A Adverse effect of glucocorticoids and synthetic analogues, initial encounter; J45.909 Unspecified asthma, uncomplicated; Z83.3 Family history of diabetes mellitus; Z90.49 Acquired absence of other specified parts of digestive tract; Z90.710 Acquired absence of both cervix and uterus; Y93.89 Activity, other specified; Y92.89 Other specified places as the place of occurrence of the external cause; Y99.8 Other external cause status; Z79.899 Other long term (current) drug therapy; Z68.31 Body mass index [BMI] 31.0-31.9, adult
CPT/HCPCS: 36415; 70450; 71045; 74176; 80048; 80053; 80061; 80076; 81001; 82010; 82150; 82550; 82948; 83036; 83605; 83615; 83690; 83735; 83930; 83935; 84145; 84443; 84484; 85025; 85378; 85610; 85651; 85730; 86140; 87040; 93005; 93306; 93356; 93880; 94664; 99285; G0378; J1650; J1815; J2470; J3411; J7030

== ENCOUNTER → 2025-01-24 | Emergency (ER) | payer OTHER ==
[~2025-01-24] VITALS: Ht 152.4 cm; Wt 73.5 kg
[~2025-01-24] MED LIST changes: -BENZ-226 PO; -CALC-1048 PO; -CEPH500B PO; -GLIP5TAB3 PO; +HUMLIS7525 SQ; +LEVO25CA5 PO; -LEVO500T2 PO; -LISI20TA24 PO; +LOSA50TA64 PO; +MELO-108 PO; -METF-446 PO; +MONT-39 PO; -ONDA-243 PO; -OSEL75 PO; -PRAV20TA59 PO; +ROSU10TA98 PO
--- NOTE | 2025-01-24 13:16 | ERN ---
General Chief Complaint: Mechanical Fall Stated Complaint: FALL Time Seen by MD: 13:00 History of Present Illness Initial Comments 69-year-old female history of hypertension, diabetes, hyperlipidemia who presents to emergency room with the complaints of right knee pain, bilateral hip pain, head pain and nausea after sustaining a mechanical fall just prior to arrival. Patient states that she was at a iron restaurant when she was walking down a inclines service when she had a mechanical slip fall hitting her right side of the head on the metal bar and landing on her right knee for which he is complaining about most of her pain. No vomiting or diarrhea. No similar symptoms like this before in the past. Patient is on no blood thinners. She is asking for pain medications at this time. Allergies: Coded Allergies: hydromorphone (Verified Allergy, Severe, 10/01/15) meperidine (Verified Allergy, Severe, 10/01/15) sitagliptin (Verified Allergy, Unknown, 10/05/24) Home Meds Active Scripts Pantoprazole Sodium (Protonix) 40 Mg Ectab, 40 MG PO DAILY for 30 Days, #30 TAB.EC Prov:SILVINO BELLA MD 05/03/22 Reported Medications Levothyroxine Sodium (Levothyroxine) 25 Mcg Capsule, 1 CAP PO DAILY for 30 Days, #30 CAP 0 Refills 10/06/24 Insulin NPL/Insulin Lispro (Humalog Mix 75/25) 100 Unit/Ml (75-25) Inj, 30 UNITS SQ HS, ML 10/05/24 Insulin NPL/Insulin Lispro (Humalog Mix 75/25) 100 Unit/Ml (75-25) Inj, 40 UNIT SQ AM, ML 10/05/24 Losartan Potassium (Losartan Potassium) 50 Mg Tablet, 50 MG PO HS, TAB 10/05/24 Rosuvastatin Calcium (Rosuvastatin Calcium) 10 Mg Tablet, 10 MG PO HS, TAB 10/05/24 Montelukast Sodium (Montelukast Sodium) 10 Mg Tablet, 1 TAB PO DAILY for 30 Days, #30 TAB 0 Refills 10/05/24 Aspirin (ASPIRIN 81 MG ECTAB) 81 Mg Ectab, 81 MG PO DAILY, TAB.EC 10/01/15 Past Medical History Past Medical History: Asthma, Diabetes-Type II, High Cholesterol, Hypertension Past Surgical History: Appendectomy, Hysterectomy, Cholecystectomy, Social History Social History: Negative, Lives with family Female( History) History: Not Applicable Gastrointestinal/Abdominal: (+) nausea Musculoskeletal: (+) joint pain, (+) muscle pain Review of Systems: was completed, & the rest were negative. Physical Exam General Appearance: (+) no apparent distress Orientation: (+) alert Head/Face Trauma: No Face Comment Normocephalic atraumatic. Bilateral neck spasms noted. Eye: bilateral eye normal inspection, bilateral eye PERRL, bilateral eye EOMI Ear, Nose, Throat: (+) hearing grossly normal, (+) normal ENT inspection Neck: (+) normal inspection, (+) supple, (+) full range of motion, (+) non- tender Respiratory: (+) chest non-tender, (+) lungs clear Heart: (+) regular Vascular: (+) no edema Gastrointestinal: (+) soft, (+) non-tender Extremities: (+) other Extremities Comment Right knee: Tenderness to palpation of medial aspect of right knee. No pain on lateral aspect. Decreased range of motion secondary to pain. Bears weight/gait antalgic. Pain with deep palpation of bilateral hips. Noted abrasion about 1 cm on anterior knee. No active bleeding. Results Laboratory and Microbiology Lab and Micro Result Laboratory Tests Test 01/24/25 15:21 White Blood Count 9.2 K/uL (4.8-10.8) Red Blood Count 4.24 MIL/uL (4.00-5.50) Hemoglobin 12.9 g/dL (12.0-16.0) Hematocrit 39.0 % (36-48) Mean Corpuscular Volume 92.0 fL (79-99) Mean Corpuscular Hemoglobin 30.4 pg (27.0-33.0) Mean Corpuscular Hemoglobin Concent 33.1 g/dL (32.0-36.0) Red Cell Distribution Width 13.3 % (11.0-15.5) Platelet Count 201 K/uL (130-400) Mean Platelet Volume 11.8 fL (7.5-10.5) H Immature Granulocyte % (Auto) 0.7 % (0-1) Neutrophils (%) (Auto) 58.9 % (40.0-77.0) Lymphocytes (%) (Auto) 30.4 % (21.0-51.0) Monocytes (%) (Auto) 7.3 % (3.0-13.0) Eosinophils (%) (Auto) 1.9 % (0.0-8.0) Basophils (%) (Auto) 0.8 % (0.0-5.0) Neutrophils # (Auto) 5.4 K/uL (1.8-7.7) Lymphocytes # (Auto) 2.8 K/uL (1.0-4.8) Monocytes # (Auto) 0.7 K/uL (0.1-1.0) Eosinophils # (Auto) 0.17 K/uL (0.00-0.70) Basophils # (Auto) 0.07 K/uL (0.00-0.20) Absolute Immature Granulocyte (auto 0.06 K/uL (0-1) Nucleated Red Blood Cells 0.0 % (0.0-0.19) Prothrombin Time 10.9 SEC (9.6-11.6) Prothromb Time International Ratio 1.03 (0.85-1.15) Sodium Level 143 mmol/L (136-145) Potassium Level 3.9 mmol/L (3.5-5.1) Chloride Level 105 mmol/L (101-111) Carbon Dioxide Level 28 mmol/L (21-32) Blood Urea Nitrogen 11 mg/dL (7-18) Creatinine 0.7 mg/dL (0.5-1.0) Glomerular Filtration Rate Calc 93 mL/min (>90) Random Glucose 121 mg/dL (70-105) H Total Calcium 9.1 mg/dL (8.5-10.1) Total Bilirubin 0.4 mg/dL (0.2-1.0) Direct Bilirubin 0.1 mg/dL (0.0-0.3) Aspartate Amino Transf (AST/SGOT) 27 U/L (10-37) Alanine Aminotransferase (ALT/SGPT) 24 U/L (12-78) Alkaline Phosphatase 78 U/L (50-136) Total Creatine Kinase 56 U/L (21-232) Troponin I High Sensitivity 9 ng/L (4-50) Total Protein 8.0 g/dL (6.0-8.3) Albumin 3.9 g/dL (3.5-5.0) EKG/XRAY/US/CT/MRI X-RAY Comment EXAM: CR right Knee, 3 View. CLINICAL HISTORY: mechanical fall, R medial knee tenderness COMPARISON: None provided. FINDINGS: BONES: No acute fracture or aggressive appearing osseous lesion. JOINTS: The joint spaces show no significant degenerative disease. There is no joint effusion appreciated. SOFT TISSUES: The soft tissues are unremarkable. IMPRESSION: No acute osseous pathology evident. /[place] EXAM: CR right Knee, 3 View. CLINICAL HISTORY: mechanical fall, R medial knee tenderness COMPARISON: None provided. FINDINGS: BONES: No acute fracture or aggressive appearing osseous lesion. JOINTS: The joint spaces show no significant degenerative disease. There is no joint effusion appreciated. SOFT TISSUES: The soft tissues are unremarkable. IMPRESSION: No acute osseous pathology evident. /[place] EXAM: CR right Hip, 2 View. CLINICAL HISTORY: mechanical fall, R medial knee tenderness COMPARISON: None provided. FINDINGS: BONES: There is concern for a nondisplaced fracture of the right ischial tuberosity. Recommend CT imaging of the pelvis for further evaluation. JOINTS: No dislocation. The joint spaces are normal. SOFT TISSUES: The soft tissues are unremarkable. IMPRESSION: 1. Questionable nondisplaced fracture of the right ischial tuberosity. CT pelvis recommended for further evaluation. CT Scan Comment EXAM: CT Pelvis without Intravenous Contrast. CLINICAL HISTORY: questionable fx on xr TECHNIQUE: Axial computed tomography images of the pelvis without without intravenous contrast. CONTRAST: None. COMPARISON: None provided. FINDINGS: HIP JOINTS: Mild degenerative changes in bilateral hip joints and sacroiliac joints. Small osteophytes at bilateral ischial tuberosities. No dislocation. The joint spaces are normal. BONES: No acute fracture or focal osseous lesion. No suspicious focal osseous lesions. SOFT TISSUES: The pelvic viscera are unremarkable. No fluid collection, hematoma or mass. No radiopaque foreign body or soft tissue gas. IMPRESSION: 1. No acute osseous injury or other acute findings. /[place] MDM 69-year-old female with head pain and nausea, knee pain, bilateral hip pain status post fall just prior to arrival. This fall was mechanical with no preceding events prior to fall. We will get CT scan of the head to rule out intracranial abnormalities. Bilateral hip x-ray and right knee x-ray to rule out fracture. We will give1 L normal saline, Toradol, Robaxin for pain. Disposition pending results of imaging Patient re-evaluated at this time. She is doing much better. Exam shows no obvious sign of injury. She is able to walk with minimal antalgic gait. We w ill provide anti-inflammatory prior to discharge. CT and x-rays reviewed with the patient. Negative for fracture on CT. EMS is going to be advised on concerning signs and symptoms for which to return to the emergency room. We will discharge home at this time. Patient states that she has Robaxin at home for which he does not need of medication. Instead we will give her a presc ription for meloxicam. Take Tylenol as needed ED Course Orders Procedure Category Date Status Time Ct Head/Brain W/O CT 01/24/25 Resulted Contrast 13:07 Knee 3vws Rt RAD 01/24/25 Resulted 13:07 Hip Bilat 2vw RAD 01/24/25 Resulted 13:07 Ketorolac PHA 01/24/25 Complete Tromethamine 15mg/Ml 13:30 Methocarbamol PHA 01/24/25 Complete (Methocarbamol) 13:30 0.9%Nacl 1000ml (Ns PHA 01/24/25 Complete 1000ml) 13:30 Ct Pelvis W/O Contrast CT 01/24/25 Resulted 14:51 Cbc With Differential LAB 01/24/25 Complete 14:58 Basic Metabolic Panel LAB 01/24/25 Complete 14:58 Troponin I High LAB 01/24/25 Complete Sensitivity 14:58 Hepatic Function Panel LAB 01/24/25 Complete 14:58 Prothrombin Time With LAB 01/24/25 Complete INR 14:58 Creatine Kinase, Total LAB 01/24/25 Complete 14:58 Ketorolac PHA 01/24/25 Verified Tromethamine 15mg/Ml 17:00 Current Medications Medications (Trade) Dose Ordered Sig/Claudia Route PRN Reason Start Time Stop Time Status Last Admin Dose Admin Ketorolac Tromethamine (toRADol) 15 mg ONCE ONCE IV 01/24/25 13:30 01/24/25 13:31 DC 01/24/25 13:40 Methocarbamol (methoCARBamol) 500 mg ONCE ONCE PO 01/24/25 13:30 01/24/25 13:31 DC 01/24/25 13:40 Sodium Chloride 1,000 ml @ 0 mls/hr Q0M ONCE IV 01/24/25 13:30 01/24/25 13:31 DC 01/24/25 13:50 Vital Signs Date Time Temp Pulse Resp B/P (MAP) Pulse Ox O2 Delivery O2 Flow Rate FiO2 01/24/25 13:31 73 18 144/77 98 Room Air* 0 21 01/24/25 12:59 98.1 84 20 160/77 97 Room Air 1400: Daughter present bedside. She confirms HPI. Patient is currently on CT scan 1456: Questionable nondisplaced fracture of the ischial tuberosity of the hip. They recommend CT scan. We will get CT scan to confirm DX & DISP Disposition: Discharge Departure Impression: Primary Impression: Fall Additional Impressions: Contusion, knee, Knee abrasion Condition: Stable Scripts Meloxicam (Meloxicam) 15 Mg Tablet 1 TAB PO DAILY PRN for PAIN LEVEL 6 TO 10 for 7 Days, #7 TAB 0 Refills Prov: MILANA ACOSTA MD 01/24/25 Referrals: DAVE REN MD (PCP) MILANA ACOSTA MD Jan 24, 2025 13:16
[2025-01-24] MEDS: 0.9%NACL 1000ML 1,000 ML IV ONE (13:50)
--- NOTE | 2025-01-24 14:07 | HMCIMG ---
EXAM: CR right Knee, 3 View. CLINICAL HISTORY: mechanical fall, R medial knee tenderness COMPARISON: None provided. FINDINGS: BONES: No acute fracture or aggressive appearing osseous lesion. JOINTS: The joint spaces show no significant degenerative disease. There is no joint effusion appreciated. SOFT TISSUES: The soft tissues are unremarkable. IMPRESSION: No acute osseous pathology evident. /[place]
--- NOTE | 2025-01-24 14:08 | HMCIMG ---
EXAM: CR right Hip, 2 View. CLINICAL HISTORY: mechanical fall, R medial knee tenderness COMPARISON: None provided. FINDINGS: BONES: There is concern for a nondisplaced fracture of the right ischial tuberosity. Recommend CT imaging of the pelvis for further evaluation. JOINTS: No dislocation. The joint spaces are normal. SOFT TISSUES: The soft tissues are unremarkable. IMPRESSION: 1. Questionable nondisplaced fracture of the right ischial tuberosity. CT pelvis recommended for further evaluation. /[place]
[2025-01-24 15:27] LABS: IMMATURE GRANULOCYTE ABSOLUTE 0.06 K/uL (0-1); NUCLEATED RED BLOOD CELLS 0.0 % (0.0-0.19); PLATELET COUNT (AUTO) 201 K/uL (130-400); RED BLOOD CELL COUNT(AUTO) 4.24 MIL/uL (4.00-5.50); RED CELL DISTRIBUTION WIDTH 13.3 % (11.0-15.5); WHITE BLOOD COUNT (AUTO) 9.2 K/uL (4.8-10.8)
[2025-01-24 15:37] LABS: INR 1.03 (0.85-1.15)
--- NOTE | 2025-01-24 15:45 | HMCIMG ---
EXAM: CT Head Without IV contrast. CLINICAL HISTORY: mechan fall, hit R side head on metal bar. (+)nausea TECHNIQUE: Axial computed tomography images of the head/brain without intravenous contrast. COMPARISON: None provided. FINDINGS: BRAIN: Bilateral bifrontal atrophy. No evidence of acute hemorrhage. No mass lesion. No CT evidence for acute territorial infarct. No midline shift or extra-axial collections. VENTRICLES: No hydrocephalus. ORBITS: The orbits are unremarkable. SINUSES AND MASTOIDS: The paranasal sinuses and mastoid air cells are clear. BONES: No fracture. SOFT TISSUES: Unremarkable. IMPRESSION: Atrophy. No acute intracranial abnormality. /[place]
--- NOTE | 2025-01-24 16:08 | HMCIMG ---
EXAM: CT Pelvis without Intravenous Contrast. CLINICAL HISTORY: questionable fx on xr TECHNIQUE: Axial computed tomography images of the pelvis without without intravenous contrast. CONTRAST: None. COMPARISON: None provided. FINDINGS: HIP JOINTS: Mild degenerative changes in bilateral hip joints and sacroiliac joints. Small osteophytes at bilateral ischial tuberosities. No dislocation. The joint spaces are normal. BONES: No acute fracture or focal osseous lesion. No suspicious focal osseous lesions. SOFT TISSUES: The pelvic viscera are unremarkable. No fluid collection, hematoma or mass. No radiopaque foreign body or soft tissue gas. IMPRESSION: 1. No acute osseous injury or other acute findings. /[place]
[2025-01-24 16:10] LABS: ASPARTATE AMINOTRANSFERASE 27.0 U/L (10-37); CREATINE KINASE, TOTAL 56.0 U/L (21-232); CREATININE 0.7 mg/dL (0.5-1.0); GLOMERULAR FILTR. RATE CALC 93.0 mL/min (>90); GLUCOSE,RANDOM 121.0 mg/dL (70-105); SODIUM SERUM 143.0 mmol/L (136-145); TOTAL PROTEIN, SERUM 8.0 g/dL (6.0-8.3); UREA NITROGEN, BLOOD 11.0 mg/dL (7-18)
[2025-01-24 18:00] VITALS: BP 132/66; PULSE 69; RESP 16; TEMP 98; O2SAT 100
--- NOTE | 2025-01-24 18:20 | NUR ---
DC PATIENT WAS DC'D BY DR ESQUEDA I DC'D PATIENTS IV WITH CATH STILL INTACT AND APPLIED 2X2 GAUZE WITH COBAN I EXPLAINED TO PATIENTR TO FOLLOW UP WITH PCP, PROVIDED INFO BASED ON DIAGNOSIS, PRESCRIPTIONS, AND ANSWERED ANY FOLLOW UP QUESTIONS I WHEELCHAIRED PATIENT OUT OF ED, NO COMPLICATIONS
== END ==
LOC: EDH 12:58
DX: S80.01XA Contusion of right knee, initial encounter (principal); E11.9 Type 2 diabetes mellitus without complications; E78.00 Pure hypercholesterolemia, unspecified; I10 Essential (primary) hypertension; J45.909 Unspecified asthma, uncomplicated; S80.211A Abrasion, right knee, initial encounter; Z79.82 Long term (current) use of aspirin; Z79.899 Other long term (current) drug therapy; Z88.5 Allergy status to narcotic agent; Z90.49 Acquired absence of other specified parts of digestive tract; Z90.710 Acquired absence of both cervix and uterus; W18.39XA Other fall on same level, initial encounter; Y93.89 Activity, other specified; Y92.89 Other specified places as the place of occurrence of the external cause; Y99.8 Other external cause status
CPT/HCPCS: 99285; 70450; 96374; 82550; 80076; 84484; 80048; 85025; 85610; 36415; 73521; 73562; 72192; 96376; J1885 ×2